=== PATIENT | male | born 1960 | race Caucasian/White ===

== ENCOUNTER → 2018-10-18 11:06 | Outpatient (CLI) | payer OTHER, SELFPAY | PROVIDERS: Visit Provider Physician Assistant | DX: N30.01 Acute cystitis with hematuria (principal) | CPT/HCPCS: 87077; 87086; 87186 ==

== ENCOUNTER → 2020-07-02 07:49 | Outpatient (CLI) | payer OTHER, SELFPAY ==
[2020-07-02 09:22] LABS: HEMOLYSIS < 15 (0-50); Potassium 4.5 mmol/L (3.4-5.1)
[2020-07-02 09:23] LABS: Alanine Aminotransferase 27 IU/L (<50); Albumin 4.4 g/dL (3.5-5.0); Albumin Globulin Ratio 1.5 (1.0-2.8); Alkaline Phosphatase 55 U/L (38-126); Aspartate Aminotransferase 35 IU/L (17-59); BUN Creatinine Ratio 19.8 (6-22); Bilirubin Total 0.7 mg/dL (0.2-1.3); Blood Urea Nitrogen 20 mg/dL (9-20); Calcium 9.5 mg/dL (8.4-10.2); Carbon Dioxide 26 mmol/L (22-32); Chloride 104 mmol/L (98-107); Cholesterol 205 mg/dL (140-199); Estimated Glomerular Filt Rate > 60.0 mL/min (>60); Globulin 2.9 g/dL (1.7-4.1); Glucose 114 mg/dL (80-110); HDL Cholesterol 57 mg/dL (40-60); LDL Cholesterol Calculated 121 mg/dL (<100); Sodium 138 mmol/L (137-145); Total Protein 7.3 g/dL (6.3-8.2); Triglycerides 134 mg/dL (35-150)
[2020-07-07 01:37] LABS: Percent Free Testosterone 2.89 % (1.50-4.20); Testosterone Free 26.65 ng/dL (5.00-21.00)
== END ==
PROVIDERS: PCP Internal Medicine; Referring Provider Internal Medicine; Visit Provider Internal Medicine
DX: Z13.1 Encounter for screening for diabetes mellitus (principal); Z13.220 Encounter for screening for lipoid disorders; Z13.6 Encounter for screening for cardiovascular disorders; E29.1 Testicular hypofunction
CPT/HCPCS: 36415; 80053; 80061; 84402; 84403

== ENCOUNTER → 2020-08-09 15:09 | Outpatient (CLI) | payer OTHER, SELFPAY ==
[2020-08-09 16:53] LABS: Prostate Specific Antigen 1.03 ng/mL (0.10-4.00)
== END ==
PROVIDERS: PCP Internal Medicine; Referring Provider Specialist; Visit Provider Specialist
DX: N13.8 Other obstructive and reflux uropathy (principal)
CPT/HCPCS: 36415; 84153

== ENCOUNTER → 2020-08-19 09:36 | Outpatient (CLI) | payer OTHER, SELFPAY | PROVIDERS: PCP Internal Medicine; Visit Provider Physician Assistant | DX: J02.9 Acute pharyngitis, unspecified (principal) | CPT/HCPCS: 87070 ==

== ENCOUNTER → 2020-08-25 13:35 | Outpatient (CLI) | payer OTHER, SELFPAY ==
[2020-08-25 14:00] LABS: COVID19 -Nasal RAPID Negative (Negative)
== END ==
PROVIDERS: PCP Internal Medicine; Referring Provider Physician Assistant; Visit Provider Physician Assistant
DX: Z20.822 Contact with and (suspected) exposure to COVID-19 (principal)
CPT/HCPCS: 87635

== ENCOUNTER → 2020-09-26 11:36 | Outpatient (CLI) | payer OTHER, SELFPAY | PROVIDERS: PCP Internal Medicine; Referring Provider Internal Medicine; Visit Provider Internal Medicine | DX: M85.851 Other specified disorders of bone density and structure, right thigh; Z82.62 Family history of osteoporosis | CPT/HCPCS: 77080 ==

== ENCOUNTER → 2021-01-03 08:22 | Outpatient (CLI) | payer OTHER, SELFPAY | PROVIDERS: PCP Internal Medicine; Visit Provider Physician Assistant | DX: R30.0 Dysuria (principal) | CPT/HCPCS: 87086 ==

== ENCOUNTER → 2021-01-08 12:45 | Outpatient (CLI) | payer OTHER, SELFPAY ==
--- NOTE | 2021-01-08 12:46 | DI.CT.S_ITS ---
PROCEDURE: CT KIDNEY URETER BLADDER (KUB) INDICATIONS: Suspected Kidney Stone TECHNIQUE: Axial sections were acquired from the lung bases to the pubic symphysis. Coronal and sagittal reformats were performed. For radiation dose reduction, the following was used: automated exposure control, adjustment of mA and/or kV according to patient size. COMPARISON: None. FINDINGS: ABDOMEN: Lung bases: Scattered subsegmental atelectasis and/or scarring. No focal consolidation. Few scattered sub 5 mm pulmonary nodules incidentally noted. Please see the montage image for detailed locations and image/series numbers. Heart: No pericardial effusion. Normal in size. Mild coronary artery calcifications. Liver: Normal. Gallbladder: Status post cholecystectomy. Bile ducts: Normal. Pancreas: Normal. Spleen: Normal. Adrenals: Normal. Kidneys and Ureters: 4 mm calculus seen at the right ureterovesical junction image 88/2. There is minimal if any ureterectasis. No hydronephrosis. No other renal calculi seen. Stomach and duodenum: Large hiatal hernia. Bowel: Large amount of stool is present. There is colonic diverticulosis. Appendix is not clearly identified however no suspicious pericecal inflammatory changes are seen. Other: No free fluid or air. Abdominal nodes: Normal. Aorta and IVC: Normal in size. Ventral wall: Small periumbilical fat containing hernia PELVIS: Bladder and reproductive: No bladder calculi seen. Enlarged prostate Inguinal region: Fat containing bilateral inguinal hernias. Pelvic nodes: Normal. Bones: Mild T8 compression fracture with anterior height loss. This finding technically age indeterminate. Diffuse spondylitic changes and facet arthropathy IMPRESSION: 4 mm right ureterovesical junction calculus. No associated evidence of urinary obstruction. No hydronephrosis. Large hiatal hernia. Incidentally noted bilateral sub 5 mm pulmonary nodules as detailed above. These findings indeterminate in the absence of relevant comparison studies. Recommend follow-up with CT chest in 12 months to exclude early metastatic or malignant possibilities. Additional chronic and incidental findings as above. Dictated by: Kvng Tyson M.D. on 01/08/2021 at 14:19 Approved by: Kvng Tyson M.D. on 01/08/2021 at 14:27
== END ==
PROVIDERS: PCP Internal Medicine; Referring Provider Internal Medicine; Visit Provider Internal Medicine
DX: R31.9 Hematuria, unspecified (principal); R39.15 Urgency of urination; M54.9 Dorsalgia, unspecified; R91.8 Other nonspecific abnormal finding of lung field; K44.9 Diaphragmatic hernia without obstruction or gangrene; N20.1 Calculus of ureter; N40.0 Benign prostatic hyperplasia without lower urinary tract symptoms; K57.90 Diverticulosis of intestine, part unspecified, without perforation or abscess without bleeding; K42.9 Umbilical hernia without obstruction or gangrene; K40.20 Bilateral inguinal hernia, without obstruction or gangrene, not specified as recurrent
CPT/HCPCS: 74176

== ENCOUNTER → 2021-02-04 13:00 | Outpatient (CLI) | payer OTHER, SELFPAY ==
--- NOTE | 2021-02-04 13:01 | DI.RAD.S_ITS ---
PROCEDURE: XR KUB INDICATIONS: History of right distal ureteral calculus TECHNIQUE: One view of the abdomen acquired. 3 mm [facility], CT, CT KIDNEY URETER BLADDER (KUB), 01/08/2021, 12:54. ficationCOMPARISON: FINDINGS: Surgical changes and devices: Surgical clips within the right upper quadrant. Bowel: Bowel gas pattern is normal. The right ureteral calculus seen by CT KUB is seen by plain film measuring roughly 4 mm. Visualized solid organ contours appear normal in size. Bones: No suspicious bony lesions. IMPRESSION: Distal right ureteral calculus. Dictated by: Dieter Moore M.D. on 02/04/2021 at 15:10 Approved by: Dieter Moore M.D. on 02/04/2021 at 15:11
== END ==
PROVIDERS: PCP Internal Medicine; Referring Provider Specialist; Visit Provider Specialist
DX: N20.1 Calculus of ureter (principal)
CPT/HCPCS: 74018

== ENCOUNTER → 2021-02-19 11:42 | Outpatient (CLI) | payer OTHER, SELFPAY ==
[2021-02-19 12:22] LABS: COVID19 -Nasal RAPID Negative (Negative)
== END ==
PROVIDERS: PCP Internal Medicine; Visit Provider Specialist
DX: Z20.822 Contact with and (suspected) exposure to COVID-19 (principal)
CPT/HCPCS: 87635; C9803

== ENCOUNTER 2021-02-22 07:41 | Day surgery (SDC) | payer OTHER, SELFPAY ==
[2021-02-19 14:07] VITALS: BMI 29.8
[2021-02-22] VITALS (9 sets, daily range): BP systolic 106–139; BP diastolic 72–90; PULSE 62–80; RESP 12–18; TEMP 36.1–36.6; O2SAT 93–96; BMI 29.8
[2021-02-22] MEDS: LACTATED RINGERS 1,000 ML 42 ML IV (08:14)
--- NOTE | 2021-02-22 08:54 | PM.PREOP ---
Pre-operative Note Interval Note History & Physical reviewed/Exam performed by Physician: Yes Changes to H&P: No
[2021-02-22] MEDS: CEFAZOLIN 2 GM/20 ML SYRINGE IV (09:35)
--- NOTE | 2021-02-22 09:46 | SUR.OPER ---
Lithotomy on padded OR bed, head on pillow, arms secured on padded arm boards at <90 degrees abduction. Legs secured in padded yellow fins stirrups.
--- NOTE | 2021-02-22 11:00 | PM.OP.1 ---
Operative Date/Time/Diagnoses Date of procedure: 02/22/21 Time of procedure: 11:00 Pre-op diagnosis: 4 mm right distal ureteral calculus Post-op diagnosis: other (Interval passage of same) Procedure & Clinicians Procedure: 1. Cystoscopy and right ureteroscopy Same procedure as scheduled: Yes Indications: 1. History of 4 mm right distal ureteral calculus Surgeon: Inder Moreno Click Yes if Unassisted: Yes Anesthesia Type: General Operative Notes Findings: 1. Urethra-normal caliber without annular stricture or lesion. 2. External sphincter coapted with normal overlying urothelium. 3. Prostate-4 + cm length with moderate trilobar hyperplasia. 4. Bladder-1 to 2+ trabeculation. Elevated bladder neck due to a median lobe. Normal ureteral orifices bilaterally. No evidence of stone, tumor, foreign body. 5. Right ureter-no evidence of recent trauma (with exception of balloon dilation for procedure), stone, blood or blood products within the right ureter from the ureterovesical junction to ureteropelvic junction under direct ureteroscopy. Closure Type: not applicable Estimated Blood Loss (mL): 0 Blood products transfused: none Procedure in detail: Patient was positioned supine was administered general anesthesia. He was then repositioned semi lithotomy and lower abdomen, genitalia, and groin were then prepped and draped in sterile fashion. The 22 Iranian panendoscope was then passed lower urinary tract with findings as described above. Next, a 0.35 hybrid guidewire was advanced through the scope into the right collecting system under direct and fluoroscopic guidance. Over this a 15 Iranian by 6 cm balloon dilating catheter was positioned across the right ureterovesical junction. The balloon was inflated 18 atmospheres and held in position for 5 minutes. The balloon was then deflated and backloaded off the wire. The panendoscope was backloaded off the wire. Next, the semi rigid ureteral scope was advanced lower urinary track and advanced in the right ureteral orifice and advanced proximally with the findings as described above. Two careful inspections were undertaken as described above. Semi rigid ureteral scope was then removed. Next, the panendoscope was reintroduced lower urinary tract and careful inspection was undertaken the bladder base. The bladder was filled on 2 occasions and drained without finding a stone. Bladder is then drained a final time in the panendoscope was removed. Patient was then repositioned in supine, was awakened, and transferred to gurney for transport to recovery in stable condition. Complications: none Post-operative Condition: stable Disposition: PACU Plan for aftercare: Discharge home.
== END 2021-02-22 11:35 | disposition home or self-care (01) ==
PROVIDERS: PCP Internal Medicine; Referring Provider Specialist; Visit Provider Specialist
PROC: 0TF68ZZ Fragmentation in Right Ureter, Via Natural or Artificial Opening Endoscopic (ICD-10-PCS; CPT 52353; principal; 2021-02-22 09:15)
DX: N20.1 Calculus of ureter (principal); N40.1 Benign prostatic hyperplasia with lower urinary tract symptoms; F41.9 Anxiety disorder, unspecified
CPT/HCPCS: 52345; 76000; J0690; J2405; J2704; J3010

== ENCOUNTER → 2021-03-12 13:27 | Outpatient (CLI) | payer OTHER, SELFPAY ==
[2021-03-12 13:51] LABS: COVID19 -Nasal RAPID Negative (Negative)
== END ==
PROVIDERS: PCP Internal Medicine; Referring Provider Student in an Organized Health Care Education/Training Program; Visit Provider Student in an Organized Health Care Education/Training Program
DX: Z20.822 Contact with and (suspected) exposure to COVID-19 (principal)
CPT/HCPCS: 87635

== ENCOUNTER → 2021-03-28 11:42 | Outpatient (CLI) | payer OTHER, SELFPAY ==
[2021-03-28 12:57] LABS: Add Manual Diff / Slide Review NO; Basophils Absolute Auto 100 /uL (0-100); Basophils Percent Auto 1.1 % (0-2); Eosinophils Absolute Auto 0 /uL (0-450); Eosinophils Percent Auto 0.6 % (2-4); Hematocrit 48.9 % (41-53); Hemoglobin 16.5 g/dL (13.5-17.5); Lymphocytes Absolute Auto 1000 /uL (1100-4500); Lymphocytes Percent Auto 18.9 % (25-40); Mean Corpuscular HGB Conc 33.8 % (30-36); Mean Corpuscular Hemoglobin 30.8 PG (26-34); Mean Corpuscular Volume 91.3 fL (80-100); Monocytes Absolute Auto 500 /uL (0-900); Monocytes Percent Auto 8.8 % (3-14); Neutrophils Absolute Auto 3900 /uL (1500-7000); Neutrophils Percent Auto 70.6 % (50-75); Platelet Count 374 X10^3/uL (150-400); Red Blood Cell Count 5.36 X10^6/uL (4.5-5.9); Red Cell Distribution Width 13.6 % (11.6-14.8); White Blood Cell Count 5.5 X10^3/uL (4.5-11.0)
[2021-03-28 13:31] LABS: Erythrocyte Sedimentation Rate 3 MM/HR (0-15)
[2021-03-28 13:36] LABS: Alanine Aminotransferase 33 IU/L (<50); Albumin 4.5 g/dL (3.5-5.0); Albumin Globulin Ratio 1.4 (1.0-2.8); Alkaline Phosphatase 47 U/L (38-126); Amylase 70 U/L (30-110); Aspartate Aminotransferase 28 IU/L (17-59); BUN Creatinine Ratio 15.2 (6-22); Bilirubin Total 0.8 mg/dL (0.2-1.3); Blood Urea Nitrogen 15 mg/dL (9-20); C-Reactive Protein Quant < 0.5 mg/dL (<1.0); Calcium 9.9 mg/dL (8.4-10.2); Carbon Dioxide 22 mmol/L (22-32); Chloride 107 mmol/L (98-107); Estimated Glomerular Filt Rate > 60.0 mL/min (>60); Globulin 3.2 g/dL (1.7-4.1); Glucose 104 mg/dL (80-110); HEMOLYSIS 31 (0-50); Lipase 210 U/L (23-300); Potassium 4.7 mmol/L (3.4-5.1); Sodium 139 mmol/L (137-145); Total Protein 7.7 g/dL (6.3-8.2)
== END ==
PROVIDERS: PCP Internal Medicine; Referring Provider Internal Medicine; Visit Provider Internal Medicine
DX: R10.11 Right upper quadrant pain (principal)
CPT/HCPCS: 36415; 80053; 82150; 83690; 85025; 85651; 86140

== ENCOUNTER → 2021-04-25 07:05 | Outpatient (CLI) | payer OTHER, SELFPAY ==
--- NOTE | 2021-04-25 07:06 | DI.US.S_ITS ---
PROCEDURE: US ABDOMEN LIMITED INDICATIONS: RUQ PAIN TECHNIQUE: Real-time focused scanning was performed of the abdomen, with image documentation. Color and pulse Doppler interrogation was also performed on the area of interest. COMPARISON: None. FINDINGS: Normal size and appearance of the liver. No liver mass. No intrahepatic or extrahepatic biliary ductal dilatation. Cholecystectomy. Pancreas is obscured by bowel gas. Normal size and appearance of the right kidney. IMPRESSION: Cholecystectomy. Otherwise normal right upper quadrant abdominal ultrasound. Dictated by: Toi Guerra M.D. on 04/25/2021 at 8:40 Approved by: Toi Guerra M.D. on 04/25/2021 at 8:41
== END ==
PROVIDERS: PCP Internal Medicine; Referring Provider Internal Medicine; Visit Provider Internal Medicine
DX: R10.11 Right upper quadrant pain (principal); Z90.49 Acquired absence of other specified parts of digestive tract
CPT/HCPCS: 76705

== ENCOUNTER → 2021-08-07 15:06 | Outpatient (CLI) | payer OTHER, SELFPAY ==
[2021-08-09 04:58] LABS: Prostate Specific Antigen 2.95 ng/mL (0.10-4.00)
== END ==
PROVIDERS: PCP Internal Medicine; Referring Provider Specialist; Visit Provider Specialist
DX: R97.20 Elevated prostate specific antigen [PSA] (principal)
CPT/HCPCS: 36415; 84153

== ENCOUNTER → 2022-08-27 12:49 | Outpatient (CLI) | payer OTHER, SELFPAY ==
[2022-08-29 23:08] LABS: PSA Free % 43.1 % (.); PSA, Total 1.3 ng/mL (0.0-4.0)
== END ==
PROVIDERS: PCP Internal Medicine; Referring Provider Specialist; Visit Provider Specialist
DX: R97.20 Elevated prostate specific antigen [PSA] (principal)
CPT/HCPCS: 36415; 84153; 84154

== ENCOUNTER 2023-04-03 14:33 | Emergency (ER) | payer OTHER, MEDICARE, SELFPAY ==
[2023-04-03 14:44] VITALS: BP 155/100; PULSE 93; RESP 16; TEMP 36.6; O2SAT 98; BMI 27.4
--- NOTE | 2023-04-03 14:49 | DI.RAD.S_ITS ---
PROCEDURE: XR CHEST 1V INDICATIONS: chest pain TECHNIQUE: One view of the chest was acquired. COMPARISON: None. FINDINGS: Surgical changes and devices: None. Lungs and pleura: Lungs are clear. No pleural effusions or pneumothorax. Mediastinum: Mediastinal contours appear normal except for what appears to be a moderate-sized hiatal hernia behind the midline of the heart. Heart size is normal. Bones and chest wall: No suspicious bony lesions. Overlying soft tissues appear unremarkable. IMPRESSION: Mild stranding at the lateral left lower lobe just above the diaphragm, potentially simply scarring or atelectasis but possibly mild or early pneumonia. Dictated by: Melvin Jaime M.D. on 04/03/2023 at 15:34 Approved by: Melvin Jaime M.D. on 04/03/2023 at 15:35
[2023-04-03] MEDS: ASPIRIN 81 MG CHEW TAB 324 MG PO (15:04)
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
[2023-04-03 15:07] LABS: Add Manual Diff / Slide Review NO; Basophils Absolute Auto 0 /uL (0-100); Basophils Percent Auto 0.7 % (0-2); Eosinophils Absolute Auto 0 /uL (0-450); Eosinophils Percent Auto 0.6 % (2-4); Hematocrit 34.4 % (41-53); Hemoglobin 10.9 g/dL (13.5-17.5); Lymphocytes Absolute Auto 800 /uL (1100-4500); Lymphocytes Percent Auto 12.6 % (25-40); Mean Corpuscular HGB Conc 31.7 % (30-36); Mean Corpuscular Hemoglobin 22.6 PG (26-34); Mean Corpuscular Volume 71.3 fL (80-100); Monocytes Absolute Auto 600 /uL (0-900); Monocytes Percent Auto 9.8 % (3-14); Neutrophils Absolute Auto 4900 /uL (1500-7000); Neutrophils Percent Auto 76.3 % (50-75); Platelet Count 289 X10^3/uL (150-400); Red Blood Cell Count 4.82 X10^6/uL (4.5-5.9); Red Cell Distribution Width 16.8 % (11.6-14.8); White Blood Cell Count 6.4 X10^3/uL (4.5-11.0)
[2023-04-03] MEDS: HEPARIN DRIP 25,000 UNIT/500 ML IV.SOLN 27.216 UNIT IV (15:10)
[2023-04-03 15:11] VITALS: BP 165/100; PULSE 96; RESP 20; O2SAT 98
[2023-04-03] MEDS: HEPARIN 5,000 UNIT/ML VIAL 9050 UNIT IV (15:16)
[2023-04-03 15:17] VITALS: BP 155/97; PULSE 94; RESP 20; O2SAT 98
[2023-04-03] MEDS: NITROGLYCERIN OINT 1 INCH/GM OINT...G. TOP (15:21)
[2023-04-03 15:25] LABS: INR 1.1 (0.9-1.3); Prothrombin Time 12.1 SECONDS (9.4-12.5)
--- NOTE | 2023-04-03 15:26 | PC.NURSE ---
Pt arrived POV, states at 11am [place] when he has some chest discomfort that radiated to his L arm. Came to ED. STEMI alert showing inferior/posterior ST elevation. BP 155/systolic. AAOx3, ambulatory. Dr Nguyễn at bedside. 324mg ASA given and heparin bolus and infusion started per APR orders. 911 in route. Report given to BRANDEN Richardson gritting machine operator and BRANDEN Granados gritting machine operator. Pain 2/10 at time of transfer. Report given to [facility] ED by Coby Bui RN. Pt transferred at 1520 with heparin infusion running.
[2023-04-03 15:28] LABS: PTT Partial Thromboplastin Tim 35 SECONDS (25.1-36.5)
[2023-04-03 15:30] LABS: Alanine Aminotransferase 20 IU/L (<50); Albumin 4.5 g/dL (3.5-5.0); Albumin Globulin Ratio 1.2 (1.0-2.8); Alkaline Phosphatase 65 U/L (38-126); Aspartate Aminotransferase 30 IU/L (17-59); BUN Creatinine Ratio 17.5 (6-22); Bilirubin Total 0.5 mg/dL (0.2-1.3); Blood Urea Nitrogen 17 mg/dL (9-20); Calcium 9.1 mg/dL (8.4-10.2); Carbon Dioxide 20 mmol/L (22-32); Chloride 107 mmol/L (98-107); Creatine Kinase 177 U/L (55-170); Estimated Glomerular Filt Rate > 60 mL/min (>60); Globulin 3.7 g/dL (1.7-4.1); Glucose 137 mg/dL (80-110); HEMOLYSIS < 15 (0-50); Lipase 132 U/L (23-300); Potassium 3.9 mmol/L (3.4-5.1); Sodium 139 mmol/L (137-145); Total Protein 8.2 g/dL (6.3-8.2)
[2023-04-03 16:12] LABS: Troponin I 0.734 ng/mL (0.01-0.034)
--- NOTE | 2023-04-06 14:55 | ED.CHESTPAIN ---
HPI - Chest Pain General Chief Complaint: Chest Pain Stated Complaint: chest pain, tingling in fingers L arm Time Seen by Provider: 04/03/23 15:02 Source: patient Mode of arrival: Ambulatory Limitations: no limitations Related Data Home Medications Medication Instructions Recorded Confirmed cholecalciferol (vitamin D3) 1,250 1,250 mcg PO QMONTH 08/08/19 12/31/22 mcg (50,000 unit) tablet Previous Rx's Medication Instructions Recorded tamsulosin 0.4 mg capsule 0.4 mg PO BEDTIME #90 caps 12/31/22 Allergies Allergy/AdvReac Type Severity Reaction Status Date / Time PENICILLIN Allergy Severe Hospitilized Uncoded 04/03/23 14:46 as a child. Review of Systems Review of Systems ROS Unobtainable: All systems reviewed & are unremarkable except as noted in HPI and below Patient History Medical History Coronary artery disease (~04/03/23) Balanitis Elevated PSA Right ureteral calculus Osteopenia Balanitis Hearing loss Double vision (~2018) Hemorrhoid (~2010) ASD (atrial septal defect) (~1958) Anxiety, generalized (~2014) Hypogonadism male (~2014) Lower urinary tract symptoms (LUTS) Inguinal hernia Enlarged prostate Prostatitis Surgical History Anesthesia Hernia of anterior abdominal wall (~1981) S/P shoulder surgery (~2003) S/P cholecystectomy (~2004) Family History Father Stroke Mother Stroke Brother Oral cancer Social History household members: spouse Smoking Status: Never smoker alcohol intake: current Smoking Status: Never smoker alcohol intake frequency: a few times a week Substance Use Type: does not use Exam Initial Vital Signs Initial Vital Signs: Vital Signs Temperature 97.8 F 04/03/23 14:44 Pulse Rate 93 H 04/03/23 14:44 Respiratory Rate 16 04/03/23 14:44 Blood Pressure 155/100 H 04/03/23 14:44 Pulse Oximetry 98 04/03/23 14:44 Oxygen Delivery Method Room Air 04/03/23 14:44 Course Orders Ordered: Discontinued Medications Aspirin (Aspirin 81 Mg Chew Tab) 324 mg PO NOW ONE Stop: 04/03/23 14:50 Last Admin: 04/03/23 15:04 Dose: 324 mg Documented By: SARA Heparin Sodium (Porcine) (Heparin 5,000 Unit/Ml Vial) 9,050 unit 80 unit/kg (9050 unit) IV NOW ONE Stop: 04/03/23 15:09 Last Admin: 04/03/23 15:16 Dose: 9,050 unit Documented By: JAIDEN Heparin Sodium/Dextrose (Heparin Drip) 25,000 unit in 500 mls @ 27.216 mls/hr IV CONT MICHAEL; Protocol Last Titration: 04/03/23 15:32 Dose: 8.82 units/kg/hr, 20 mls/hr Documented By: JAIDEN Co-signed By: VIOLET Titration: 04/03/23 15:16 Dose: 8.82 units/kg/hr, 20 mls/hr Documented By: JAIDEN Co-signed By: VIOLET Admin: 04/03/23 15:10 Dose: 12 units/kg/hr, 27.216 mls/hr Documented By: JAIDEN Co-signed By: VIOLET Sodium Chloride (Normal Saline 0.9%) 1,000 mls @ 1,000 mls/hr IV BOLUS ONE Stop: 04/03/23 16:06 Last Admin: 04/03/23 15:32 Dose: Not Given Documented By: JAIDEN Nitroglycerin (Nitroglycerin Oint 1 Inch/Gm Oint...G.) 1 inch TOP NOW ONE Stop: 04/03/23 15:18 Last Admin: 04/03/23 15:21 Dose: 1 inch Documented By: SARA [facility] - Chest Pain Lab Data 04/03/23 14:55 04/03/23 14:55 Labs: Lab Results 04/03/23 Range/Units 14:55 WBC 6.4 (4.5-11.0) X10^3/uL RBC 4.82 (4.5-5.9) X10^6/uL Hgb 10.9 L (13.5-17.5) g/dL Hct 34.4 L (41-53) % MCV 71.3 L (80-100) fL MCH 22.6 L (26-34) PG MCHC 31.7 (30-36) % RDW 16.8 H (11.6-14.8) % Plt Count 289 (150-400) X10^3/uL Neut % (Auto) 76.3 H (50-75) % Lymph % (Auto) 12.6 L (25-40) % [place] % (Auto) 9.8 (3-14) % Eos % (Auto) 0.6 L (2-4) % Baso % (Auto) 0.7 (0-2) % Neut # (Auto) 4900 (3463-6698) /uL Lymph # (Auto) 800 L (3263-6084) /uL [place] # (Auto) 600 (0-900) /uL Eos # (Auto) 0 (0-450) /uL Baso # (Auto) 0 (0-100) /uL PT 12.1 (9.4-12.5) SECONDS INR 1.1 (0.9-1.3) APTT 35 (25.1-36.5) SECONDS Sodium 139 (137-145) mmol/L Potassium 3.9 (3.4-5.1) mmol/L Chloride 107 (98-107) mmol/L Carbon Dioxide 20 L (22-32) mmol/L BUN 17 (9-20) mg/dL Creatinine 0.97 (0.66-1.25) mg/dL Estimated GFR > 60 (>60) mL/min BUN/Creatinine Ratio 17.5 (6-22) Glucose 137 H (80-110) mg/dL Calcium 9.1 (8.4-10.2) mg/dL Magnesium 2.0 (1.6-2.3) mg/dL Total Bilirubin 0.5 (0.2-1.3) mg/dL AST 30 (17-59) IU/L ALT 20 (<50) IU/L Alkaline Phosphatase 65 (38-126) U/L Total Creatine Kinase 177 H (55-170) U/L Troponin I 0.734 H* (0.01-0.034) ng/mL Total Protein 8.2 (6.3-8.2) g/dL Albumin 4.5 (3.5-5.0) g/dL Globulin 3.7 (1.7-4.1) g/dL Albumin/Globulin Ratio 1.2 (1.0-2.8) Lipase 132 (23-300) U/L Discharge Plan [facility] Imp[facility]: ST elevation myocardial infarction (STEMI) Qualifiers: Involved coronary artery: unspecified coronary artery Qualified Code(s): I21.3 - ST elevation (STEMI) myocardial infarction of unspecified site Prescriptions: No Action cholecalciferol (vitamin D3) 1,250 mcg (50,000 unit) tablet 1,250 mcg PO QMONTH tamsulosin 0.4 mg capsule 0.4 mg PO BEDTIME Qty: 90 3RF Referrals: David Solorio MD [Primary Care Provider] -
== END 2023-04-03 15:33 | disposition short-term general hospital (02) ==
PROVIDERS: Emergency Provider Emergency Medicine; PCP Internal Medicine
DX: I21.3 ST elevation (STEMI) myocardial infarction of unspecified site (principal)
CPT/HCPCS: 36415; 71045; 80053; 82550; 83690; 83735; 84484; 85025; 85610; 85730; 93005; 93010; 96365; 96375; 99284; J1644

== ENCOUNTER 2023-04-06 14:34 | Emergency (ER) | payer OTHER, MEDICARE, SELFPAY ==
[2023-04-06] VITALS (10 sets, daily range): BP systolic 105–133; BP diastolic 65–89; PULSE 69–86; RESP 9–27; TEMP 37; O2SAT 95–98; BMI 27.4
--- NOTE | 2023-04-06 14:37 | DI.RAD.S_ITS ---
PROCEDURE: XR CHEST 1V INDICATIONS: chest pain TECHNIQUE: One view of the chest was acquired. COMPARISON: [facility], CR, XR CHEST 1 VIEW, 04/03/2023, 23:12. [facility], CR, XR CHEST 1V, 04/03/2023, 14:54. FINDINGS: Surgical changes and devices: None. Lungs and pleura: Left basilar opacity. No pleural effusions or pneumothorax. Mediastinum: Mediastinal contours appear normal. Heart size is normal. Bones and chest wall: No suspicious bony lesions. Overlying soft tissues appear unremarkable. IMPRESSION: Left basilar opacity is stable, atelectasis versus infection. Dictated by: Robby López M.D. on 04/06/2023 at 15:40 Approved by: Robby López M.D. on 04/06/2023 at 15:42
[2023-04-06] MEDS: ASPIRIN 81 MG CHEW TAB 324 MG PO (14:54)
[2023-04-06 15:05] LABS: Add Manual Diff / Slide Review NO; Basophils Absolute Auto 0 /uL (0-100); Basophils Percent Auto 0.4 % (0-2); Eosinophils Absolute Auto 100 /uL (0-450); Eosinophils Percent Auto 1.9 % (2-4); Hematocrit 30.8 % (41-53); Hemoglobin 9.8 g/dL (13.5-17.5); Lymphocytes Absolute Auto 1100 /uL (1100-4500); Mean Corpuscular HGB Conc 31.9 % (30-36); Mean Corpuscular Volume 72.1 fL (80-100); Monocytes Absolute Auto 300 /uL (0-900); Monocytes Percent Auto 4.9 % (3-14); Neutrophils Absolute Auto 5400 /uL (1500-7000); Neutrophils Percent Auto 76.8 % (50-75); Platelet Count 274 X10^3/uL (150-400); Red Blood Cell Count 4.27 X10^6/uL (4.5-5.9); Red Cell Distribution Width 16.9 % (11.6-14.8)
[2023-04-06 15:13] LABS: INR 1.1 (0.9-1.3); Prothrombin Time 12.3 SECONDS (9.4-12.5)
[2023-04-06 15:16] LABS: PTT Partial Thromboplastin Tim 35 SECONDS (25.1-36.5)
--- NOTE | 2023-04-06 15:19 | ED.NEUROSD ---
HPI - Neuro Symptoms/Deficit General Chief Complaint: Neuro Symptoms/Deficit Stated Complaint: had heart attack t-2, tingling on L arm/legs Time Seen by Provider: 04/06/23 14:50 Source: patient and family Mode of arrival: Ambulatory History of Present Illness HPI Narrative: 63-year-old male with recent ST elevated OH transferred on 04/03/2023 to [facility] had heart catheterization EF was 55% and discharged yesterday that time patient had chest pain with left arm tingling anus. He states no chest pain or pressure no shortness of breath but left arm and his left leg had some tingling in his in a sterile around his calf. Patient states he has not having any weakness denies headache, denies vision changes. Denies any chest pain or shortness of breath. Denies any new weakness or difficulty with ambulation. No speech changes. Patient states he did have a 2nd of an ocular migraine when she has had in the past and states that resolved. Patient states before his transfer several days ago was only on Flomax he is now on aspirin, Plavix, atorvastatin, iron and metoprolol XL 25 mg daily. Denies surgeries besides his cardiac stents. Allergic to penicillin. No tobacco, occasional alcohol, no recreational drugs. Dr. Solorio is his primary care physician. Following with [facility]. On Anticoagulants: Yes (plavix and Asa 81mg) Related Data Home Medications Medication Instructions Recorded Confirmed cholecalciferol (vitamin D3) 1,250 1,250 mcg PO QMONTH 08/08/19 12/31/22 mcg (50,000 unit) tablet Previous Rx's Medication Instructions Recorded tamsulosin 0.4 mg capsule 0.4 mg PO BEDTIME #90 caps 12/31/22 Allergies Allergy/AdvReac Type Severity Reaction Status Date / Time PENICILLIN Allergy Severe Hospitilized Uncoded 04/03/23 14:46 as a child. Review of Systems Review of Systems ROS Unobtainable: All systems reviewed & are unremarkable except as noted in HPI and below Hematologic/Lymphatic On Anticoagulants: Yes (plavix and Asa 81mg) Patient History Medical History Coronary artery disease (~04/03/23) Balanitis Elevated PSA Right ureteral calculus Osteopenia Balanitis Hearing loss Double vision (~2018) Hemorrhoid (~2010) ASD (atrial septal defect) (~195) Anxiety, generalized (~2014) Hypogonadism male (~2014) Lower urinary tract symptoms (LUTS) Inguinal hernia Enlarged prostate Prostatitis Surgical History Anesthesia Hernia of anterior abdominal wall (~1981) S/P shoulder surgery (~2003) S/P cholecystectomy (~2004) Family History Father Stroke Mother Stroke Brother Oral cancer Social History household members: spouse Smoking Status: Never smoker alcohol intake: current Smoking Status: Never smoker alcohol intake frequency: a few times a week Substance Use Type: does not use Exam Narrative Exam Narrative: GENERAL: Alert and oriented x three, male in mild distress HEENT: Head normocephalic, atraumatic, EOMI, pupils reactive, face symmetric, moist mucous membranes NECK: Supple, full range of motion CARDIOVASCULAR: Regular rate and rhythm without murmurs, rubs or gallops. No JVD. 2+ pulses upper and lower extremities. RESPIRATORY: Breath sounds equal bilaterally, no wheezes rales or rhonchi. ABDOMEN: Soft, nontender. Normoactive bowel sounds all 4 quadrants. No guarding or rebound, rigidity, no mass, patient has some ecchymosis in his right inguinal area but no swelling or hematoma palpated. No warmth or erythema. : No CVA tenderness EXTREMITIES: Normal range of motion, no clubbing or edema. 5/5 muscle strength in upper and lower extremities. Normal sensation throughout. Neurovascularly intact NEUROLOGICAL: Cranial nerves II through XII grossly intact. Moving all extremities SKIN: Warm, dry, no petechiae, no rashes or lesions. Initial Vital Signs Initial Vital Signs: Vital Signs Temperature 98.6 F 04/06/23 14:37 Pulse Rate 82 04/06/23 14:37 Respiratory Rate 23 04/06/23 14:37 Blood Pressure 120/83 04/06/23 14:37 Pulse Oximetry 97 04/06/23 14:37 Oxygen Delivery Method Room Air 04/06/23 14:37 Course Orders Ordered: Discontinued Medications Aspirin (Aspirin 81 Mg Chew Tab) 324 mg PO NOW ONE Stop: 04/06/23 14:37 Last Admin: 04/06/23 14:54 Dose: 243 mg Documented By: SB Vital Signs Vital signs: Vital Signs - 8 hr 04/06/23 14:37 04/06/23 14:50 04/06/23 15:00 Temperature 98.6 F Pulse Rate 82 86 83 Respiratory Rate 23 26 H 25 H Blood Pressure 120/83 Pulse Oximetry 97 98 97 Oxygen Delivery Method Room Air Room Air 04/06/23 15:00 04/06/23 15:30 04/06/23 15:30 Temperature Pulse Rate 81 Respiratory Rate 27 H Blood Pressure 126/79 133/89 Pulse Oximetry 96 Oxygen Delivery Method 04/06/23 16:00 04/06/23 16:00 04/06/23 16:30 Temperature Pulse Rate 81 75 Respiratory Rate 19 9 L Blood Pressure 117/75 Pulse Oximetry 97 96 Oxygen Delivery Method 04/06/23 16:30 04/06/23 17:00 04/06/23 17:00 Temperature Pulse Rate 77 Respiratory Rate 14 Blood Pressure 107/69 106/75 Pulse Oximetry 96 Oxygen Delivery Method 04/06/23 17:30 04/06/23 17:30 04/06/23 18:00 Temperature Pulse Rate 72 74 Respiratory Rate 17 18 Blood Pressure 116/65 Pulse Oximetry 95 96 Oxygen Delivery Method MDM - Neuro Symptoms/Deficit Lab Data 04/06/23 14:52 04/06/23 14:52 Labs: Lab Results 04/06/23 04/06/23 Range/Units 14:52 17:49 WBC 7.0 (4.5-11.0) X10^3/uL RBC 4.27 L (4.5-5.9) X10^6/uL Hgb 9.8 L (13.5-17.5) g/dL Hct 30.8 L (41-53) % MCV 72.1 L (80-100) fL MCH 23.0 L (26-34) PG MCHC 31.9 (30-36) % RDW 16.9 H (11.6-14.8) % Plt Count 274 (150-400) X10^3/uL Neut % (Auto) 76.8 H (50-75) % Lymph % (Auto) 16.0 L (25-40) % [place] % (Auto) 4.9 (3-14) % Eos % (Auto) 1.9 L (2-4) % Baso % (Auto) 0.4 (0-2) % Neut # (Auto) 5400 (6512-8979) /uL Lymph # (Auto) 1100 (0683-4581) /uL [place] # (Auto) 300 (0-900) /uL Eos # (Auto) 100 (0-450) /uL Baso # (Auto) 0 (0-100) /uL PT 12.3 (9.4-12.5) SECONDS INR 1.1 (0.9-1.3) APTT 35 (25.1-36.5) SECONDS Sodium 137 (137-145) mmol/L Potassium 4.2 (3.4-5.1) mmol/L Chloride 107 (98-107) mmol/L Carbon Dioxide 20 L (22-32) mmol/L BUN 18 (9-20) mg/dL Creatinine 0.96 (0.66-1.25) mg/dL Estimated GFR > 60 (>60) mL/min BUN/Creatinine Ratio 18.8 (6-22) Glucose 164 H (80-110) mg/dL Calcium 9.3 (8.4-10.2) mg/dL Magnesium 1.9 (1.6-2.3) mg/dL Total Bilirubin 0.4 (0.2-1.3) mg/dL AST 72 H (17-59) IU/L ALT 34 (<50) IU/L Alkaline Phosphatase 57 (38-126) U/L Total Creatine Kinase 250 H (55-170) U/L Troponin I 10.900 H* 10.900 H* (0.01-0.034) ng/mL Total Protein 7.5 (6.3-8.2) g/dL Albumin 4.2 (3.5-5.0) g/dL Globulin 3.3 (1.7-4.1) g/dL Albumin/Globulin Ratio 1.3 (1.0-2.8) Lipase 132 (23-300) U/L Imaging Data Chest x-ray: Radiologist's Impression: Close Chest X-Ray (Signed) Robby López - 04/06/23 Chest X-Ray (Signed) Melvin Jaime - 04/03/23 Abdomen Ultrasound (Signed) Toi Guerra - 04/25/21 Telemetry Strips 02/22/21 KUB X-Ray (Signed) Dieter Moore - 02/04/21 Abdomen/Pelvis CT (Signed) Kvng Tyson - 01/08/21 Bone Densitometry 09/26/20 Launch?Image [address] [address] XRay Report Signed Patient: Ilir Han MR#: [id number] : 1960 Acct:[id number] Age/Sex: 63 / M Date of Service: 04/06/23 Loc: ED Accession Number: [id number] Procedure: XR chest 1V Ordering Provider: Valentina Oneil D.O. PROCEDURE: XR CHEST 1V INDICATIONS: chest pain TECHNIQUE: One view of the chest was acquired. COMPARISON: [facility], CR, XR CHEST 1 VIEW, 04/03/2023, 23:12. [facility], CR, XR CHEST 1V, 04/03/2023, 14:54. FINDINGS: Surgical changes and devices: None. Lungs and pleura: Left basilar opacity. No pleural effusions or pneumothorax. Mediastinum: Mediastinal contours appear normal. Heart size is normal. Bones and chest wall: No suspicious bony lesions. Overlying soft tissues appear unremarkable. IMPRESSION: Left basilar opacity is stable, atelectasis versus infection. Dictated by: Robby López M.D. on 04/06/2023 at 15:40 Approved by: Robby López M.D. on 04/06/2023 at 15:42 ECG Data Attestation: I personally reviewed and interpreted this ECG as follows: Prior ECG tracings: available for review Interpretation: Rate 86 VA 164 QRS of 90 QTC 449 normal sinus rhythm with inverted T-waves in 2 3 and AVF with Q-waves present as well. No other ST elevation or depression appreciated. Patient has prior from 04/03/[address] elevation in 2 3 AVF with depression in V1 through V3 and and aVL. MDM Narrative Medical decision making narrative: 63-year-old male presents with complaint of tingling sensation in his arm and leg. Patient has no other symptoms states that he had some tingling with his heart attack but at that time also had chest pressure. He states he has had none of that. Patient's neurologic exam is overall normal. Labs hemoglobin 9.8 was 10.9 on 04/03 white count of 7, platelets are 274. Coags are negative, CMP shows a CO2 of 20 but otherwise appropriate electrolytes, renal function glucose of 164. AST is 72 otherwise negative LFTs. Troponin is 10.9 but was 24 with troponin I yesterday at [facility] after discussion with Cardiology and CK yesterday was in the 900 range in his 250 today. Chest x-ray shows left basilar opacity stable atelectasis versus infection. Patient does not appear to have any infectious symptoms suspect more atelectasis. EKG shows T-wave inversions but no elevation and pattern that appears expected post OH. Spoke with Dr. Salguero, cardiology at [facility]. He reviewed patient's labs troponin is continuing to trend down words. We will repeat at 2 hour if no increased patient is felt appropriate for discharge home. Repeat troponin at the same at 10.9 but has had significant improvement from yesterday to today. Patient felt appropriate for discharge home. Discharge Plan Departure Patient Disposition: Home Clinical Impression: Arm paresthesia, left Activity Restrictions/Additional Instructions: Follow-up for recheck. I hope you continue to feel improved. Your heart enzyme today is elevated but significantly improved from yesterday at [facility]. Continue with your current home medications. Please return if you have new chest pain or shortness of breath, severe headaches, sudden vision changes, new or worsening numbness tingling or weakness, difficulty with speech or facial droop or other new or concerning changes. Prescriptions: No Action cholecalciferol (vitamin D3) 1,250 mcg (50,000 unit) tablet 1,250 mcg PO QMONTH tamsulosin 0.4 mg capsule 0.4 mg PO BEDTIME Qty: 90 3RF Referrals: David Solorio MD [Primary Care Provider] - Stand Alone Forms: Patient Portal/API
[2023-04-06 15:25] LABS: Alanine Aminotransferase 34 IU/L (<50); Albumin 4.2 g/dL (3.5-5.0); Albumin Globulin Ratio 1.3 (1.0-2.8); Alkaline Phosphatase 57 U/L (38-126); Aspartate Aminotransferase 72 IU/L (17-59); BUN Creatinine Ratio 18.8 (6-22); Bilirubin Total 0.4 mg/dL (0.2-1.3); Blood Urea Nitrogen 18 mg/dL (9-20); Calcium 9.3 mg/dL (8.4-10.2); Carbon Dioxide 20 mmol/L (22-32); Chloride 107 mmol/L (98-107); Creatine Kinase 250 U/L (55-170); Estimated Glomerular Filt Rate > 60 mL/min (>60); Globulin 3.3 g/dL (1.7-4.1); Glucose 164 mg/dL (80-110); HEMOLYSIS < 15 (0-50); Lipase 132 U/L (23-300); Magnesium 1.9 mg/dL (1.6-2.3); Potassium 4.2 mmol/L (3.4-5.1); Sodium 137 mmol/L (137-145); Total Protein 7.5 g/dL (6.3-8.2)
--- NOTE | 2023-04-06 17:00 | PC.NURSE ---
PT denies chest pain, SOB, dizziness, nausea, or lightheaded. He complains of left sided tingling that goes into his left shoulder/arm, and down through his left leg. Pt was seen in our ER Thursday for a STEMI and sent to [facility] transport and had a stent placed. Pt ambulatory and denies any pain.
== END 2023-04-06 19:05 | disposition home or self-care (01) ==
PROVIDERS: Emergency Provider Emergency Medicine; PCP Internal Medicine
DX: R20.2 Paresthesia of skin (principal); R07.9 Chest pain, unspecified; I25.2 Old myocardial infarction; Z79.01 Long term (current) use of anticoagulants
CPT/HCPCS: 36415; 71045; 80053; 82550; 83690; 83735; 84484; 85025; 85610; 85730; 93005; 99284

== ENCOUNTER 2023-04-25 18:41 | Emergency (ER) | payer OTHER, MEDICARE, SELFPAY ==
[2023-04-25] VITALS (8 sets, daily range): BP systolic 106–159; BP diastolic 69–89; PULSE 68–79; RESP 12–26; TEMP 37; O2SAT 97–99; BMI 33.5
--- NOTE | 2023-04-25 18:45 | DI.RAD.S_ITS ---
PROCEDURE: XR CHEST 1V INDICATIONS: chest pain TECHNIQUE: One view of the chest was acquired. COMPARISON: [facility], CR, XR CHEST 1V, 04/06/2023, 14:54. [facility], CR, XR CHEST 1V, 04/03/2023, 14:54. [facility], CR, XR CHEST 1 VIEW, 04/03/2023, 23:12. FINDINGS: Surgical changes and devices: None. Lungs and pleura: On this semiupright portable chest examination, no large pneumothorax or large pleural effusions are seen. Mild, streaky opacities are seen at the lung bases, left worse than right. Mediastinum: The cardiac contours are within normal limits. The aorta demonstrates calcification and tortuosity. Bones and chest wall: No suspicious bony lesions. Age-appropriate bony degenerative changes are seen. Overlying soft tissues appear unremarkable. IMPRESSION: Presumed atelectasis is seen at the lung bases. Differential diagnosis includes minimal/early infiltrate, yet this is considered to be less likely. Dictated by: Navin Ching M.D. on 04/25/2023 at 18:26 Approved by: Navin Ching M.D. on 04/25/2023 at 18:27
[2023-04-25 18:54] LABS: Add Manual Diff / Slide Review NO; Basophils Absolute Auto 100 /uL (0-100); Basophils Percent Auto 1.2 % (0-2); Eosinophils Absolute Auto 200 /uL (0-450); Eosinophils Percent Auto 2.8 % (2-4); Hematocrit 34.5 % (41-53); Hemoglobin 10.9 g/dL (13.5-17.5); Lymphocytes Absolute Auto 1300 /uL (1100-4500); Lymphocytes Percent Auto 24.2 % (25-40); Mean Corpuscular HGB Conc 31.6 % (30-36); Mean Corpuscular Hemoglobin 23.5 PG (26-34); Mean Corpuscular Volume 74.3 fL (80-100); Monocytes Absolute Auto 600 /uL (0-900); Neutrophils Absolute Auto 3400 /uL (1500-7000); Neutrophils Percent Auto 61.8 % (50-75); Platelet Count 341 X10^3/uL (150-400); Red Blood Cell Count 4.64 X10^6/uL (4.5-5.9); Red Cell Distribution Width 20.3 % (11.6-14.8); White Blood Cell Count 5.5 X10^3/uL (4.5-11.0)
--- NOTE | 2023-04-25 18:57 | ED.GENADULT ---
HPI - General Adult General Chief complaint: Chest Pain Stated complaint: Chest pain Time Seen by Provider: 04/25/23 18:43 Source: EMS Mode of arrival: EMS History of Present Illness HPI narrative: 63-year-old male with history of HI 1 month prior presents by EMS from home for left-sided shoulder pain that began earlier this evening. Pain is a dull ache in his triceps region, does not radiate. Since patient has had a recent HI he became concerned and decided called 911 out of precaution. EMS administered aspirin and nitroglycerin EN route. EKG sinus rhythm throughout transport. Related Data Home Medications Medication Instructions Recorded Confirmed cholecalciferol (vitamin D3) 1,250 1,250 mcg PO QMONTH 08/08/19 04/09/23 mcg (50,000 unit) tablet aspirin 81 mg chewable tablet 1 tab PO DAILY 04/09/23 04/09/23 atorvastatin 20 mg tablet 20 mg PO DAILY 04/09/23 04/09/23 clopidogrel 75 mg tablet 75 mg PO DAILY 04/09/23 04/09/23 ferrous sulfate 325 mg (65 mg 325 mg PO Q OTHER DAY 04/09/23 04/09/23 iron) tablet (FeroSul) metoprolol succinate 25 mg 25 mg PO DAILY 04/09/23 04/09/23 tablet,extended release 24 hr Previous Rx's Medication Instructions Recorded tamsulosin 0.4 mg capsule 0.4 mg PO BEDTIME #90 caps 12/31/22 Allergies Allergy/AdvReac Type Severity Reaction Status Date / Time PENICILLIN Allergy Severe Hospitilized Uncoded 04/24/23 10:03 as a child. Review of Systems Review of Systems Narrative: See HPI Patient History Medical History ST elevation myocardial infarction (STEMI) Iron deficiency anemia (~03/2023) Coronary artery disease (~04/03/23) Balanitis Elevated PSA Right ureteral calculus Osteopenia Balanitis Hearing loss Double vision (~2018) Hemorrhoid (~2010) ASD (atrial septal defect) (~1958) Anxiety, generalized (~2014) Hypogonadism male (~2014) Lower urinary tract symptoms (LUTS) Inguinal hernia Enlarged prostate Prostatitis Surgical History H/O heart artery stent Anesthesia Hernia of anterior abdominal wall (~1981) S/P shoulder surgery (~2003) S/P cholecystectomy (~2004) Family History Father Stroke Mother Stroke Brother Oral cancer Social History marital status: household members: spouse lives independently: Yes occupational status: previously employed Smoking Status: Never smoker alcohol intake: current substance use type: does not use Smoking Status: Never smoker alcohol intake frequency: a few times a week Substance Use Type: does not use Exam Initial Vital Signs Initial Vital Signs: Vital Signs Pulse Rate 76 04/25/23 18:45 Respiratory Rate 20 04/25/23 18:45 Blood Pressure 159/89 H 04/25/23 18:45 Pulse Oximetry 99 04/25/23 18:45 Oxygen Delivery Method Room Air 04/25/23 18:45 Const: Awake, alert, no acute distress, nontoxic appearing Cardiac: regular rate, regular rhythm RESP: unlabored, clear bilaterally, no wheezing GI: Atraumatic, soft, nontender, nondistended, no rebound, no guarding MSK: Atraumatic, full range of motion, pulses equal Skin: Warm, Dry, intact, no rashes Neuro: AO x3, CN II-XII grossly intact, moves all extremities Course Orders Ordered: Discontinued Medications Aspirin (Aspirin 81 Mg Chew Tab) 324 mg PO NOW ONE Stop: 04/25/23 18:46 Last Admin: 04/25/23 18:51 Dose: Not Given Documented By: [facility] Vital Signs Vital signs: Vital Signs - 8 hr 04/25/23 18:45 04/25/23 18:45 04/25/23 18:47 Temperature 98.6 F Pulse Rate 76 79 Respiratory Rate 20 16 Blood Pressure 159/89 H 159/89 H Pulse Oximetry 99 99 Oxygen Delivery Method Room Air Room Air 04/25/23 19:00 04/25/23 19:00 04/25/23 19:30 Temperature Pulse Rate 76 74 Respiratory Rate 16 26 H Blood Pressure 132/78 Pulse Oximetry 99 98 Oxygen Delivery Method Room Air Room Air 04/25/23 19:30 04/25/23 20:00 04/25/23 20:00 Temperature Pulse Rate 68 Respiratory Rate 14 Blood Pressure 124/79 120/69 Pulse Oximetry 97 Oxygen Delivery Method Room Air 04/25/23 20:30 04/25/23 20:30 04/25/23 21:00 Temperature Pulse Rate 72 Respiratory Rate 12 Blood Pressure 113/76 106/72 Pulse Oximetry 98 Oxygen Delivery Method Room Air 04/25/23 21:00 Temperature Pulse Rate 72 Respiratory Rate 16 Blood Pressure Pulse Oximetry 97 Oxygen Delivery Method Room Air Medical Decision Making Differential Diagnosis Differential Diagnosis: ACS, shoulder pain, costochondritis Lab Data 04/25/23 18:45 04/25/23 18:45 Labs: Lab Results 04/25/23 04/25/23 Range/Units 18:45 20:45 WBC 5.5 (4.5-11.0) X10^3/uL RBC 4.64 (4.5-5.9) X10^6/uL Hgb 10.9 L (13.5-17.5) g/dL Hct 34.5 L (41-53) % MCV 74.3 L (80-100) fL MCH 23.5 L (26-34) PG MCHC 31.6 (30-36) % RDW 20.3 H (11.6-14.8) % Plt Count 341 (150-400) X10^3/uL Neut % (Auto) 61.8 (50-75) % Lymph % (Auto) 24.2 L (25-40) % [place] % (Auto) 10.0 (3-14) % Eos % (Auto) 2.8 (2-4) % Baso % (Auto) 1.2 (0-2) % Neut # (Auto) 3400 (6827-5530) /uL Lymph # (Auto) 1300 (9201-4394) /uL [place] # (Auto) 600 (0-900) /uL Eos # (Auto) 200 (0-450) /uL Baso # (Auto) 100 (0-100) /uL RBC Morphology See below Anisocytosis 1+ H PT 11.2 (9.4-12.5) SECONDS INR 1.0 (0.9-1.3) APTT 39 H (25.1-36.5) SECONDS Sodium 141 (137-145) mmol/L Potassium 4.0 (3.4-5.1) mmol/L Chloride 109 H (98-107) mmol/L Carbon Dioxide 21 L (22-32) mmol/L BUN 17 (9-20) mg/dL Creatinine 1.00 (0.66-1.25) mg/dL Estimated GFR > 60 (>60) mL/min BUN/Creatinine Ratio 17.0 (6-22) Glucose 122 H (80-110) mg/dL Calcium 9.8 (8.4-10.2) mg/dL Magnesium 2.1 (1.6-2.3) mg/dL Total Bilirubin 0.5 (0.2-1.3) mg/dL AST 30 (17-59) IU/L ALT 26 (<50) IU/L Alkaline Phosphatase 64 (38-126) U/L Total Creatine Kinase 106 (55-170) U/L Troponin I 0.012 < 0.012 (0.01-0.034) ng/mL Total Protein 8.8 H (6.3-8.2) g/dL Albumin 5.0 (3.5-5.0) g/dL Globulin 3.8 (1.7-4.1) g/dL Albumin/Globulin Ratio 1.3 (1.0-2.8) Lipase 180 (23-300) U/L Imaging Data Chest x-ray: Radiologist's Impression: PROCEDURE: XR CHEST 1V INDICATIONS: chest pain TECHNIQUE: One view of the chest was acquired. COMPARISON: [facility], , XR CHEST 1V, 04/06/2023, 14:54. [facility], , XR CHEST 1V, 04/03/2023, 14:54. [facility], CR, XR CHEST 1 VIEW, 04/03/2023, 23:12. FINDINGS: Surgical changes and devices: None. Lungs and pleura: On this semiupright portable chest examination, no large pneumothorax or large pleural effusions are seen. Mild, streaky opacities are seen at the lung bases, left worse than right. Mediastinum: The cardiac contours are within normal limits. The aorta demonstrates calcification and tortuosity. Bones and chest wall: No suspicious bony lesions. Age-appropriate bony degenerative changes are seen. Overlying soft tissues appear unremarkable. IMPRESSION: Presumed atelectasis is seen at the lung bases. Differential diagnosis includes minimal/early infiltrate, yet this is considered to be less likely. Dictated by: Navin Ching M.D. on 04/25/2023 at 18:26 Approved by: Navin Ching M.D. on 04/25/2023 at 18:27 ECG Data Interpretation: normal sinus rhythm 77bpm, normal OK, normal axis. no STEMI MDM Narrative Medical decision making narrative: Well-appearing patient with atraumatic left shoulder pain. Recent history of HI. Reports compliance with all of the medications prescribed by cardiology. Patient does state that he has been hypervigilant of his symptoms following his heart attack and came to the ER out of precaution. EKG sinus rhythm without concerning findings. Troponins x2 negative. Patient counseled on all lab and imaging findings, he has a cardiology appointment upcoming this month and he was counseled to keep that appointment as scheduled. ED return precautions discussed at bedside. Patient expressed understanding of the plan and is in agreement at this time. All questions answered at the time of discharge. Discharge Plan Departure Patient Disposition: Home Clinical Impression: Acute pain of left shoulder Instructions: DI for Chest Pain Activity Restrictions/Additional Instructions: Your troponin today were negative x2. Your EKG did not show any concerning findings. Please follow up as scheduled with your clinic clerk. No medication changes today. If you notice any new or worsening symptoms please come back to the emergency department for a recheck. Prescriptions: No Action cholecalciferol (vitamin D3) 1,250 mcg (50,000 unit) tablet 1,250 mcg PO QMONTH metoprolol succinate 25 mg tablet extended release 24 hr 25 mg PO DAILY aspirin 81 mg tablet,chewable 1 tab PO DAILY clopidogrel 75 mg tablet 75 mg PO DAILY atorvastatin 20 mg tablet 20 mg PO DAILY ferrous sulfate [FeroSul] 325 mg (65 mg iron) tablet 325 mg PO Q OTHER DAY tamsulosin 0.4 mg capsule 0.4 mg PO BEDTIME Qty: 90 3RF Referrals: David Solorio MD [Primary Care Provider] - Stand Alone Forms: Patient Portal/API
[2023-04-25 19:05] LABS: Prothrombin Time 11.2 SECONDS (9.4-12.5)
[2023-04-25 19:07] LABS: PTT Partial Thromboplastin Tim 39 SECONDS (25.1-36.5)
[2023-04-25 19:10] LABS: Alanine Aminotransferase 26 IU/L (<50); Albumin Globulin Ratio 1.3 (1.0-2.8); Alkaline Phosphatase 64 U/L (38-126); Aspartate Aminotransferase 30 IU/L (17-59); Bilirubin Total 0.5 mg/dL (0.2-1.3); Blood Urea Nitrogen 17 mg/dL (9-20); Calcium 9.8 mg/dL (8.4-10.2); Carbon Dioxide 21 mmol/L (22-32); Chloride 109 mmol/L (98-107); Creatine Kinase 106 U/L (55-170); Estimated Glomerular Filt Rate > 60 mL/min (>60); Globulin 3.8 g/dL (1.7-4.1); Glucose 122 mg/dL (80-110); HEMOLYSIS 17 (0-50); Lipase 180 U/L (23-300); Magnesium 2.1 mg/dL (1.6-2.3); Sodium 141 mmol/L (137-145); Total Protein 8.8 g/dL (6.3-8.2)
[2023-04-25 19:21] LABS: Troponin I 0.012 ng/mL (0.01-0.034)
[2023-04-25 19:44] LABS: Anisocytosis 1+
[2023-04-25 21:23] LABS: Troponin I < 0.012 ng/mL (0.01-0.034)
== END 2023-04-25 21:43 | disposition home or self-care (01) ==
PROVIDERS: Emergency Provider Emergency Medicine; PCP Internal Medicine
DX: M25.512 Pain in left shoulder (principal); R07.9 Chest pain, unspecified; I25.2 Old myocardial infarction
CPT/HCPCS: 71045; 80053; 82550; 83690; 83735; 84484; 85025; 85610; 85730; 93005; 93010; 99283; 99284

== ENCOUNTER → 2023-05-28 14:47 | Outpatient (CLI) | payer OTHER, MEDICARE, SELFPAY ==
[2023-05-28 15:12] LABS: Add Manual Diff / Slide Review NO; Basophils Absolute Auto 100 /uL (0-100); Basophils Percent Auto 1.1 % (0-2); Eosinophils Absolute Auto 100 /uL (0-450); Eosinophils Percent Auto 2.7 % (2-4); Hematocrit 31.6 % (41-53); Lymphocytes Absolute Auto 1200 /uL (1100-4500); Lymphocytes Percent Auto 25.8 % (25-40); Mean Corpuscular HGB Conc 31.8 % (30-36); Mean Corpuscular Hemoglobin 24.1 PG (26-34); Mean Corpuscular Volume 75.8 fL (80-100); Monocytes Absolute Auto 400 /uL (0-900); Monocytes Percent Auto 9.4 % (3-14); Neutrophils Absolute Auto 2900 /uL (1500-7000); Platelet Count 263 X10^3/uL (150-400); Red Blood Cell Count 4.17 X10^6/uL (4.5-5.9); Red Cell Distribution Width 19.3 % (11.6-14.8); White Blood Cell Count 4.7 X10^3/uL (4.5-11.0)
[2023-05-28 16:01] LABS: HEMOLYSIS < 15 (0-50)
[2023-05-28 16:07] LABS: Alanine Aminotransferase 36 IU/L (<50); Albumin 4.5 g/dL (3.5-5.0); Albumin Globulin Ratio 1.6 (1.0-2.8); Alkaline Phosphatase 57 U/L (38-126); Aspartate Aminotransferase 33 IU/L (17-59); BUN Creatinine Ratio 26.7 (6-22); Bilirubin Total 0.5 mg/dL (0.2-1.3); Blood Urea Nitrogen 23 mg/dL (9-20); Calcium 9.5 mg/dL (8.4-10.2); Carbon Dioxide 23 mmol/L (22-32); Chloride 107 mmol/L (98-107); Estimated Glomerular Filt Rate > 60 mL/min (>60); Globulin 2.8 g/dL (1.7-4.1); Glucose 96 mg/dL (80-110); Potassium 3.8 mmol/L (3.4-5.1); Sodium 137 mmol/L (137-145); Total Protein 7.3 g/dL (6.3-8.2)
[2023-05-28 20:32] LABS: HEMOLYSIS < 15 (0-50); Iron 122 ug/dL (49-181)
[2023-05-28 20:42] LABS: Percent Iron Saturation 29 % (20-50); Total Iron Binding Capacity 424 ug/dL (261-462); Transferrin 339 mg/dL (206-381)
[2023-05-29 03:03] LABS: Carcinoembryonic Antigen 2.8 ng/mL (0.1-3.0)
== END ==
PROVIDERS: PCP Internal Medicine; Referring Provider Internal Medicine; Visit Provider Internal Medicine
DX: D64.9 Anemia, unspecified (principal); I10 Essential (primary) hypertension; D50.9 Iron deficiency anemia, unspecified; I25.10 Atherosclerotic heart disease of native coronary artery without angina pectoris
CPT/HCPCS: 80053; 82378; 83540; 83550; 85025

== ENCOUNTER → 2023-06-02 11:19 | Outpatient (CLI) | payer MEDICARE, OTHER, SELFPAY ==
--- NOTE | 2023-06-02 11:21 | DI.RAD.S_ITS ---
PROCEDURE: XR DEXA AXIAL SKELETON INDICATIONS: osteoporosis COMPARISON: [facility], CR, XR DEXA AXIAL SKELETON, 09/26/2020, 12:05. FINDINGS: Lumbar Spine: L3-L4. Bone mineral density 0.849 g/cm2, T score -2.3. Left Hip: Bone mineral density 0.870 g/cm2, T score -0.6. Left Femoral Neck: Bone mineral density 0.702 g/cm2, T score -1.3. Right Hip: Bone mineral density 0.823 g/cm2, T score -1.0. Right Femoral Neck: Bone mineral density 0.652 g/cm2, T score -1.8. Fracture Risk Calculation (when applicable): 10-year fracture risk of a major osteoporotic fracture 7.6% and of a hip fracture 1.6%. (T score greater or equal to -1.0 to: NORMAL) (T score from -1.1 to -2.4: OSTEOPENIA) (T score less than or equal to -2.5: OSTEOPOROSIS) IMPRESSION: Osteopenia. Dictated by: Luiz Angel M.D. on 06/04/2023 at 11:03 Approved by: Luiz Angel M.D. on 06/04/2023 at 11:04
== END ==
LOC: RAD 11:19
PROVIDERS: PCP Internal Medicine; Referring Provider Internal Medicine; Visit Provider Internal Medicine
DX: M81.0 Age-related osteoporosis without current pathological fracture (principal)
CPT/HCPCS: 77080

== ENCOUNTER 2023-07-14 06:42 | Day surgery (SDC) | payer MEDICARE, OTHER, SELFPAY ==
--- NOTE | 2023-07-14 | PATH_ITS ---
[facility] Accession Number: [id number] No. of containers..02 Tissue . 01 Material submitted: . PART A: gastrointestinal site - GASTRIC PART B: colon - SIGMOID POLYP . 01 Diagnosis: A. STOMACH, BIOPSY: Helicobacter pylori gastritis. A moderate number of forms morphologically consistent with Helicobacter pylori highlighted by immunohistochemistry. Negative for intestinal metaplasia. Negative for dysplasia and malignancy. . B. SIGMOID COLON POLYP: Tubular adenoma x1. Hyperplastic polyp x1. [facility] 07/20/2023 1105 Local . 01 Electronically signed: . Florencio Emerson MD, PhD, Pathologist NPI- [id number] . 01 Gross description: . A. Received in formalin with two identifiers and gastric biopsy, are multiple purcell soft tissue fragments aggregating to 0.4 x 0.3 x 0.1 cm. Filtered and submitted entirely in A1. B. Received in formalin with two identifiers and sigmoid polyp, are multiple purcell soft tissue fragments aggregating to 0.5 x 0.4 x 0.2 cm. Filtered and submitted entirely in B1. ([id number]) /MRV 07/16/2023 1813 Local . 01 Microscopic: . An immunohistochemical stain was performed to evaluate for Helicobacter organisms and highlights a moderate number of forms morphologically consistent with Helicobacter pylori. The control stain showed appropriate reactivity. . 01 Pathologist provided ICD-10: K29.70, B96.81, D12.5 . 01 CPT . 877647, 233765, G76329 Specimen Comment: A courtesy copy of this report has been sent to [phone] Performed at: [address] [facility], [place], [place] [id number] MD Alan Eden MD Phone: [phone]
[2023-07-14 07:15] VITALS: BP 113/74; PULSE 64; RESP 16; TEMP 36.2; O2SAT 97; BMI 26.9
[2023-07-14] MEDS: LACTATED RINGERS 1,000 ML 100 ML IV (07:37)
--- NOTE | 2023-07-14 07:43 | P.HP_ITS ---
History of Present Illness History of Present Illness Date Patient Seen: 07/14/23 Time Patient Seen: 07:43 Chief complaint: [facility] [place] Narrative: 63-year-old man with anemia here for diagnostic upper and lower endoscopy. No interval changes in health. No chest pain shortness of breath doing exceptionally well in cardiac rehab. [facility] Medical History ST elevation myocardial infarction (STEMI) Iron deficiency anemia (~03/2023) Coronary artery disease (~04/03/23) Balanitis Elevated PSA Right ureteral calculus Osteopenia Balanitis Hearing loss Double vision (~2018) Hemorrhoid (~2010) ASD (atrial septal defect) (~1958) Anxiety, generalized (~2014) Hypogonadism male (~2014) Lower urinary tract symptoms (LUTS) Inguinal hernia Enlarged prostate Prostatitis Surgical History H/O heart artery stent Anesthesia Hernia of anterior abdominal wall (~1981) S/P shoulder surgery (~2003) S/P cholecystectomy (~2004) Family History Father Stroke Mother Stroke Brother Oral cancer Social History marital status: household members: spouse lives independently: Yes occupational status: previously employed Smoking Status: Never smoker alcohol intake: current substance use type: does not use Meds Home Medications and Allergies Home Medications Medication Instructions Recorded Confirmed Type cholecalciferol (vitamin D3) 1,250 1,250 mcg PO QMONTH 08/08/19 05/28/23 History mcg (50,000 unit) tablet tamsulosin 0.4 mg capsule 0.4 mg PO BEDTIME #90 caps 12/31/22 07/14/23 Rx aspirin 81 mg chewable tablet 1 tab PO DAILY 04/09/23 07/14/23 History clopidogrel 75 mg tablet 75 mg PO DAILY 04/09/23 07/14/23 History metoprolol succinate 25 mg 25 mg PO DAILY 04/09/23 07/14/23 History tablet,extended release 24 hr sodium,potassium,mag sulfates 17.5 See Rx Instructions PO .COMPLEX 05/27/23 05/28/23 Rx gram-3.13 gram-1.6 gram oral soln #354 mL (Suprep Bowel Prep Kit) atorvastatin 40 mg tablet 40 mg PO DAILY 05/28/23 07/14/23 History ferrous gluconate 225 mg (27 mg 225 mg PO DAILY #90 tabs 05/28/23 07/14/23 Rx iron) tablet Allergies Allergy/AdvReac Type Severity Reaction Status Date / Time Penicillins AdvReac Intermediate Hospitalized Verified 07/14/23 07:37 as child Exam Narrative Exam Narrative: General adult man alert oriented no acute distress Chest nonlabored respiration Extremities warm well perfused Assessment & Plan Assessment & Plan narrative: 63-year-old anemia here for diagnostic upper and lower endoscopy. Procedure again reviewed including its risks benefits and alternatives. He elects to proceed and provides his consent
--- NOTE | 2023-07-14 07:46 | PM.OP.EC ---
Operative Date/Time/Diagnoses Date of procedure: 07/14/23 Time of procedure: 08:35 Pre-op diagnosis: Anemia Post-op diagnosis: other (Gastritis, colonic polyp x2) Procedure & Clinicians Study performed: Diagnostic esophagogastroduodenoscopy and colonoscopy Same procedure as scheduled: Yes Indications: Anemia Surgeon: Stanley Sherwood Procedure Notes Procedure in detail: The history and physical was performed/updated and the patient is ASA class is 2. The procedure was discussed in detail with the patient. Potential risks complications including infection, bleeding, missed diagnosis, perforation, need for surgery, and were explained. Their questions were answered and informed consent was obtained. Patient placed in left lateral decubitus position. Time out was performed. Procedural sedation was administered by Anesthesia. A bite block was placed. the scope was inserted into the mouth and advanced through the esophagus and into the stomach. the pylorus was intubated and the duodenum was examined to the 2nd portion.. The scope was retroflexed within the stomach. The stomach was then decompressed and scope pulled back to the GE junction. The scope was then removed Examination began with a thorough inspection of the perianal area there was no evidence of fissures, fistulae, external hemorrhoids or cutaneous malignancy. The colonoscopy scope was then placed into the anal canal and was advanced to the cecum, which was identified by the ileocecal valve, the appendiceal orifice and the confluence of the taenia. The scope was then slowly withdrawn examining colon thoroughly in all directions, irrigating it of any residual stool. FINDINGS -Mild gastritis without active hemorrhage within gastric body. Biopsies taken with forceps -Sigmoid colon polyps 3 mm x 2 removed with biopsy forceps -internal hemorrhoids The patient tolerated the procedure well. They will be discharged once criteria are met. The prep was of good/excellent quality. The withdrawl time was 8 minutes. Specimen(s): other (Sigmoid colon polyps x2, gastric biopsy.) Impression: Colonic polyps x2, gastritis Post-procedure Plan for aftercare: Omeprazole 20 mg once daily x6 weeks Disposition: same day surgery
[2023-07-14 08:31] VITALS: BP 95/55; PULSE 57; RESP 11; TEMP 36.4; O2SAT 91
[2023-07-14 08:37] VITALS: BP 107/69; PULSE 61; RESP 14; O2SAT 93
[2023-07-14 08:41] VITALS: BP 114/81; PULSE 58; RESP 19; TEMP 36.7; O2SAT 95
== END 2023-07-14 09:10 | disposition home or self-care (01) ==
PROVIDERS: PCP Internal Medicine; Referring Provider Surgery; Visit Provider Surgery
PROC: 0DJ08ZZ Inspection of Upper Intestinal Tract, Via Natural or Artificial Opening Endoscopic (ICD-10-PCS; CPT 43235; principal; 2023-07-14 07:45)
PROC: 0DJD8ZZ Inspection of Lower Intestinal Tract, Via Natural or Artificial Opening Endoscopic (ICD-10-PCS; CPT 45378; 2023-07-14 07:45)
DX: D50.9 Iron deficiency anemia, unspecified (principal); K64.8 Other hemorrhoids; K29.60 Other gastritis without bleeding; B96.81 Helicobacter pylori [H. pylori] as the cause of diseases classified elsewhere; D12.5 Benign neoplasm of sigmoid colon
CPT/HCPCS: 45380; 43239; J2704

== ENCOUNTER → 2023-08-03 06:49 | Outpatient (CLI) | payer MEDICARE, OTHER, SELFPAY ==
[2023-08-03 08:43] LABS: Cholesterol 123 mg/dL (140-199); HDL Cholesterol 55 mg/dL (40-60); LDL Cholesterol Calculated 55 mg/dL (<100); Triglycerides 67 mg/dL (35-150)
[2023-08-06 02:09] LABS: Lipoprotein (a) 14.3 nmol/L (<75.0)
== END ==
PROVIDERS: PCP Internal Medicine; Referring Provider Internal Medicine Cardiovascular Disease; Visit Provider Internal Medicine Cardiovascular Disease
DX: I25.10 Atherosclerotic heart disease of native coronary artery without angina pectoris (principal)
CPT/HCPCS: 36415; 80061; 83695

== ENCOUNTER → 2023-08-24 16:07 | Outpatient (CLI) | payer MEDICARE, OTHER, SELFPAY ==
[2023-08-24 17:20] LABS: Add Manual Diff / Slide Review NO; Basophils Absolute Auto 0 /uL (0-100); Basophils Percent Auto 0.8 % (0-2); Eosinophils Absolute Auto 100 /uL (0-450); Eosinophils Percent Auto 2.5 % (2-4); Hematocrit 30.9 % (41-53); Hemoglobin 9.7 g/dL (13.5-17.5); Lymphocytes Absolute Auto 1300 /uL (1100-4500); Lymphocytes Percent Auto 28.4 % (25-40); Mean Corpuscular HGB Conc 31.5 % (30-36); Mean Corpuscular Volume 73.2 fL (80-100); Monocytes Absolute Auto 500 /uL (0-900); Monocytes Percent Auto 10.6 % (3-14); Neutrophils Absolute Auto 2700 /uL (1500-7000); Neutrophils Percent Auto 57.7 % (50-75); Platelet Count 220 X10^3/uL (150-400); Red Blood Cell Count 4.22 X10^6/uL (4.5-5.9); Red Cell Distribution Width 16.6 % (11.6-14.8); White Blood Cell Count 4.7 X10^3/uL (4.5-11.0)
[2023-08-24 18:02] LABS: HEMOLYSIS < 15 (0-50); Iron 69 ug/dL (49-181)
[2023-08-24 18:05] LABS: HEMOLYSIS < 15 (0-50)
[2023-08-24 18:14] LABS: Percent Iron Saturation 17 % (20-50); Total Iron Binding Capacity 396 ug/dL (261-462); Transferrin 295 mg/dL (206-381)
[2023-08-24 18:16] LABS: Alanine Aminotransferase 23 IU/L (<50); Albumin 4.2 g/dL (3.5-5.0); Albumin Globulin Ratio 1.6 (1.0-2.8); Alkaline Phosphatase 56 U/L (38-126); Aspartate Aminotransferase 30 IU/L (17-59); BUN Creatinine Ratio 19.6 (6-22); Bilirubin Total 0.5 mg/dL (0.2-1.3); Blood Urea Nitrogen 19 mg/dL (9-20); Calcium 8.7 mg/dL (8.4-10.2); Carbon Dioxide 23 mmol/L (22-32); Chloride 106 mmol/L (98-107); Estimated Glomerular Filt Rate > 60 mL/min (>60); Globulin 2.7 g/dL (1.7-4.1); Glucose 117 mg/dL (80-110); Potassium 3.9 mmol/L (3.4-5.1); Sodium 138 mmol/L (137-145); Total Protein 6.9 g/dL (6.3-8.2)
== END ==
PROVIDERS: PCP Internal Medicine; Referring Provider Internal Medicine; Visit Provider Internal Medicine
DX: D50.9 Iron deficiency anemia, unspecified (principal); R97.20 Elevated prostate specific antigen [PSA]
CPT/HCPCS: 36415; 80053; 83540; 83550; 84153; 85025

== ENCOUNTER 2023-09-03 10:15 | Outpatient (RCR) | payer MEDICARE, OTHER, SELFPAY ==
--- OUTSIDE RECORDS SUMMARY | 2023-05-06 08:40 | XMS_ITS | Referral Summary ---
Author Name Unknown Organization [facility] Address [address] [place] [address] Care Team Providers Care Slater Apprentice Name Role Phone David Solorio Primary Care Provider [phone] Reason for Referral * - Authorized Specialty Diagnoses / Procedures Referred By Jeannine alvarado Referred To Contact Cardiac Rehabilitation Diagnoses History of heart artery stent History of ST elevation myocardial infarction (STEMI) Marielos Ribeiro MD [address] [place] [address] [address] [place] [address] [address] Referral ID Status Reason Start Date Expiration Date V isits Requested Visits Authorized [id number] Authorized 05/05/2023 04/29/2024 1 1 * Diagnostic Imaging (Urgent) - Pending Review Specialty Diagnoses / Procedures Referred By Jeannine alvarado Referred To Contact Radiology Diagnoses ASHD (arteriosclerotic heart disease) History of atrial septal defect Procedures ECHOCARDIOGRAM COMPLETE Marielos Ribeiro MD [address] [place] [address] [address] [place] [address] Referral ID Status Reason Start Date Expiration Date Visits Requested Visits Authorized [id number] Pending Review Specialty Services Required 05/05/2023 04/29/2024 1 1 Reason for Visit * Reason Comments Heart Problem Encounter Details Date Type Department Care Team Description 05/05/2023 12:00 PM PDT Office Visit [facility] Cardiology [place] [address] [place] [address] Evens Ingram MD [address] [address] [place] [address] Marielos Ribeiro MD [address] [address] [place] [address] ASHD (arteriosclerotic heart disease) (Primary Dx); History of heart artery stent; History of ST elevation myocardial infarction (STEMI); History of atrial septal defect Allergies Active Allergy Reactions Criticality Noted Date Comments Penicillins Other (see comments) High 01/31/2010 States that it caused a Fever documented as of this encounter (statuses as of 05/05/2023) Medications Medication Sig Dispensed Refills Start Date End Date Status tamsulosin (FLOMAX) 0.4 mg capsule Take 1 capsule (0.4 mg total) by mouth nightly 0 Active aspirin 81 mg chewable tablet Take 1 tablet (81 mg total) by mouth daily 90 tablet 0 04/06/2023 Active ferrous sulfate 325 mg (65 mg iron) tablet Take 1 tablet (325 mg total) by mouth every other day 90 tablet 0 04/06/2023 Active cholecalciferol (VITAMIN D3) 125 mcg (5,000 unit) tablet oral tablet Take 1 tablet (5,000 Units total) by mouth daily 0 10/26/2014 Active clopidogreL (PLAVIX) 75 mg tablet Take 1 tablet (75 mg total) by mouth daily 90 tablet 3 05/05/2023 05/04/2024 Active atorvastatin (LIPITOR) 40 mg tablet Take 1 tablet (40 mg total) by mouth nightly 90 tablet 3 05/05/2023 05/04/2024 Active metoprolol succinate XL (TOPROL-XL) 25 mg 24 hr tablet Take 1 tablet (25 mg total) by mouth daily Hold if top BP less than 95 90 tablet 3 05/05/2023 05/04/2024 Active clopidogreL (PLAVIX) 75 mg tablet Take 1 tablet (75 mg total) by mouth daily 90 tablet 0 04/06/2023 05/05/2023 Discontinued (Reorder) atorvastatin (LIPITOR) 20 mg tablet Take 1 tablet (20 mg total) by mouth nightly 30 tablet 11 04/05/2023 05/05/2023 Discontinued (Reorder) metoprolol succinate XL (TOPROL-XL) 25 mg 24 hr tablet Take 1 tablet (25 mg total) by mouth daily 90 tablet 0 04/06/2023 05/05/2023 Discontinued (Reorder) metoprolol succinate XL (TOPROL-XL) 25 mg 24 hr tablet Take 1 tablet (25 mg total) by mouth daily 90 tablet 3 05/05/2023 05/05/2023 Discontinued (Reorder) documented as of this encounter (statuses as of 05/05/2023) Active Problems Problem Noted Date Diagnosed Date Bilateral inguinal hernia 11/18/2018 Colon polyp 05/18/2017 Hypogonadism male 10/26/2014 Vitamin D deficiency 10/26/2014 Osteoporosis 08/08/2014 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 No 04/04/2023 Within the last year, have y ou been humiliated or emotionally abused in other ways by your partner or ex-partner? No Within the last year, have y ou been kicked, hit, slapped, or otherwise physically hurt by your partner or ex-partner? No 04/04/2023 Within the last year, have y ou been raped or forced to have any kind of sexual activity by your partner or ex-partner? No 04/04/2023 Overall Financial Resource Strain (CARDIA) Answe r Date Recorded How hard is it for you to pa y for the very basics like food, housing, medical care, and heating? Not hard at all 04/04/2023 Hunger Vital Sign Answer Date Recorded Within the past 12 months, y ou worried that your food would run out before you got the money to buy more. Never true 04/04/19 24 Within the past 12 months, t he food you bought just didn't last and you didn't have money to get more. Never true 04/04/2023 PRAPARE - Transportation Answer Date Re corded In the past 12 months, has l ack of transportation kept you from medical appointments or from getting medications? No 03/19 In the past 12 months, has l ack of transportation kept you from meetings, work, or from getting things needed for daily living? No 04/04/2023 Housing Stability Vital Sign Answer Barry e Recorded In the last 12 months, was t here a time when you were not able to pay the mortgage or rent on time? No 04/04/2023 In the last 12 months, how many places have you lived? 1 04/04/2023 In the last 12 months, was t here a time when you did not have a steady place to sleep or slept in a mcc (including now)? No 04/04/2023 Sex and Gender Information Value Date Recorded Sex Assigned at Male 04/04/2023 12:47 AM PST Gender Identity Male 04/04/2023 12:47 AM PST Sexual Orientation Not on file Job Start Date Occupation Industry Not on file Not on file Not on file documented as of this encounter Last Filed Vital Signs Vital Sign Reading Time Taken Comments Blood Pressure 98/68 05/05/2023 11:45 AM PDT Pulse 70 05/05/2023 11:45 AM PDT Temperature - - Respiratory Rate - - Oxygen Saturation - - Inhaled Oxygen Concentration - - Weight 113 kg (249 lb 14.4 oz) 05/05/2023 11:45 AM PDT Height 203.2 cm (6' 8) 05/05/2023 11:45 AM PDT Body Mass Index 27.45 05/05/2023 11:45 AM PDT documented in this encounter Progress Notes * Marielos Ribeiro MD - 05/05/2023 12:00 PM PDT Increase atorvastatin from 20mg daily to 40mg daily in the evening/night. * Marielos Ribeiro MD - 05/05/2023 12:00 PM PDT Subjective Patient ID: Ilir Han is a 63 y.o. male that presents today for had concerns including Heart Problem. HPI: 63 yo M h/o CAD here for F/U on his CAD. Patient is here with his . Patient's mother sees me as well. Since his hospitalization for his DC that was treated with RCA stent, he has done well. Denies chest pain, dyspnea, palpitations, lightheadedness, or syncope. He walks up stairs and walks 3 miles regularly without any issue. PROBLEM LIST: # CAD s/p RCA stent 04/03/2023 in the setting of STEMI # ASD diagnosed at young age. Not noted on Echo 03/2023 Past Medical History: Diagnosis Date Atrial septal defect Chronic prostatitis Coronary artery disease Hypogonadism in male Prediabetes Past Surgical History: Procedure Laterality Date ABDOMINAL HERNIA REPAIR CHOLECYSTECTOMY COLONOSCOPY SHOULDER SURGERY Family History Problem Relation Age of Onset Stroke Mother Arrhythmia Mother Stroke Father Social History Socioeconomic History Marital status: Tobacco Use Smoking status: Never Smokeless tobacco: Never Allergies Allergen Reactions Penicillins Other (see comments) States that it caused a Fever Current Medication List Sig aspirin 81 mg chewable tablet Take 1 tablet (81 mg total) by mouth daily cholecalciferol (VITAMIN D3) 125 mcg (5,000 unit) tablet oral tablet Take 1 tablet (5,000 Units total) by mouth daily ferrous sulfate 325 mg (65 mg iron) tablet Take 1 tablet (325 mg total) by mouth every other day tamsulosin (FLOMAX) 0.4 mg capsule Take 1 capsule (0.4 mg total) by mouth nightly atorvastatin (LIPITOR) 20 mg tablet (Discontinued) Take 1 tablet (20 mg total) by mouth nightly clopidogreL (PLAVIX) 75 mg tablet (Discontinued) Take 1 tablet (75 mg total) by mouth daily metoprolol succinate XL (TOPROL-XL) 25 mg 24 hr tablet (Discontinued) Take 1 tablet (25 mg total) by mouth daily atorvastatin (LIPITOR) 40 mg tablet Take 1 tablet (40 mg total) by mouth nightly clopidogreL (PLAVIX) 75 mg tablet Take 1 tablet (75 mg total) by mouth daily metoprolol succinate XL (TOPROL-XL) 25 mg 24 hr tablet Take 1 tablet (25 mg total) by mouth daily Hold if top BP less than 95 metoprolol succinate XL (TOPROL-XL) 25 mg 24 hr tablet (Discontinued) Take 1 tablet (25 mg total) by mouth daily Review of Systems Objective BP 98/68 (BP Location: Left arm, Patient Position: Sitting) Pulse 70 Ht 2.032 m Wt 113 kg BMI 27.45 kg/m?? Physical Exam: General appearance: No apparent distress, well-nourished, pleasant, cooperative HEET: Normocephalic atraumatic, no scleral icterus, tongue midline, mucous membranes moist Neck: supple Cardiovascular: RRR, normal S1 and normal S2, no murmurs/ rubs/gallops, PMI nondisplaced, no JVD, no peripheral edema Respiratory: Good aeration, CTAB Abdomen: Soft, nontender, nondistended, + bowel sounds Neuro: Alert, no facial droop, tongue midline, no gross motor deficits Psych: appropriate affect Skin: no rashes on face, neck, and lower extremities Cath 04/03/2023:MANUEL to RCA Echo 04/04/2023: 1. Normal LV size and borderline normal systolic function. Moderate hypokinesis of the basal and mid inferior wall. The estimated ejection fraction is 50-55%. RV is borderline dilated with normal systolic function. 2. Moderate left atrial enlargement. Right atrium is mildly dilated. 3. Age appropriate valve changes. No hemodynamically significant valvular heart diseaeses. 4. No pericardial effusion. 5. Contrast enhanced study to assess for intra-cardiac shunt and wall motion abnormalitiies. No clear evidence of intra-cardiac shunt. Wall motion abnormalities are noted as above. Assessment/Plan Comments: 1. ASHD (arteriosclerotic heart disease) Lipid panel, Lipoprotein (a), ECHOCARDIOGRAM COMPLETE 2. History of heart artery stent Ambulatory Referral to Cardiac Rehabilitation 3. History of ST elevation myocardial infarction (STEMI) Ambulatory Referral to Cardiac Rehabilitation 4. History of atrial septal defect ECHOCARDIOGRAM COMPLETE # CAD s/p RCA stent 04/03/2023 in the setting of STEMI. Patient doing well and without symptoms. Plan: - Continue aspirin 81mg daily - Continue clopidogrel 75mg daily (stop date 04/03/2024) - Increase atorvastatin from 20mg at bedtime to 40mg at bedtime - Continue metoprolol XL 25mg daily, hold if SBP < 95 - Refer to cardiac rehab # ASD diagnosed at young age. Not noted on Echo 03/2023 - Echo as pending. # Pre c-scope: it would be preferable to hold off c-scope for 3 months (until 07/02/2023) before c-scope. F/U in 3 months with echo and labs [including lipoprotein (a)]. Electronically signed by Marielos Ribeiro MD 05/05/2023 12:26 PM documented in this encounter Plan of Treatment Upcoming Encounters Date Type Department Care Team Description 07/29/2023 2:40 PM PDT Office Visit [facility] Gastroenterology [address] [address] Amanuel Burleson MD [address] [address] Scheduled Orders Name Type Priority Associated Diagnoses Order Schedule Lipid panel Lab Routine ASHD (arteriosclerotic heart disease) Expected: 08/05/2023, Expires: 11/04/2024 Lipoprotein (a) Lab Routine ASHD (arteriosclerotic heart disease) Expected: 08/05/2023, Expires: 05/04/2024 ECHOCARDIOGRAM COMPLETE Imaging Urgent ( Imaging Only) ASHD (arteriosclerotic heart disease) History of atrial septal defect Expected: 08/05/2023, Expires: 11/25/2026 Scheduled Referrals Name Type Priority Associated Diagnoses Order Schedule Ambulatory Referral to Cardiac Rehabilitation Outpatient Referral Routine History of heart artery stent History of ST elevation myocardial infarction (STEMI) Ordered: 05/05/2023 documented as of this encounter Medical Devices Implanted Type Area Sales And Marketing Coordinator Device Identifier Shelf Expiration Date Model / Serial / Lot Stent, 5.00x22 Redmon Larsen - [id number] Implanted:Qty: 1 on 04/03/2023 by Ricky Stewart MD at [facility] N/A: Coronary Medtronic [id number] / / [employer] - [id number] Implanted:Qty: 1 on 04/03/2023 by Magnus Coates, RT at [facility] Right: Arterial ORDOÑEZ [id number] / / documented as of this encounter Visit Diagnoses Diagnosis ASHD (arteriosclerotic heart disease)- Primary Coronary atherosclerosis of unspecified type of vessel, redding or graft History of heart artery stent History of ST elevation myocardial infarction (STEMI) History of atrial septal defect Personal history of other diseases of circulatory system documented in this encounter Advance Directives Latest Code Status on File Code Status Date Activated Date Inactivated Comments Full Code 04/03/2023 7:48 PM 04/05/2023 4:36 PM Code Status History Code Status Date Activated Date Inactivated Comments Full Code 04/03/2023 7:46 PM 04/03/2023 7:48 PM Care Teams Slater Apprentice Relationship Specialty Start Date End Date David Solorio [address] [facility] [address] [place] [address] PCP - General Internal Medicine 04/03/23 documented as of this encounter
== END 2023-09-03 12:15 ==
LOC: CAR 10:15
PROVIDERS: PCP Internal Medicine; Referring Provider Internal Medicine Cardiovascular Disease; Visit Provider Internal Medicine Cardiovascular Disease
DX: I21.3 ST elevation (STEMI) myocardial infarction of unspecified site (principal)
CPT/HCPCS: 93798

== ENCOUNTER → 2023-09-18 10:00 | Outpatient (CLI) | payer MEDICARE, OTHER, SELFPAY ==
--- NOTE | 2023-09-18 10:01 | DI.US.S_ITS ---
PROCEDURE: US ABDOMEN LIMITED INDICATIONS: RLQ pain TECHNIQUE: Real-time scanning was performed of the abdominal and retroperitoneal organs, with image documentation. COMPARISON: [facility], , US ABDOMEN LIMITED, 04/25/2021, 7:20. FINDINGS: Detailed evaluation of the right lower quadrant failed to identify the appendix. There is no free fluid or abscess in the right lower quadrant adenopathy. No tenderness was present during the exam. IMPRESSION: Nonvisualized appendix. Appendicitis not excluded. Approved by: Chris hWite M.D. on 09/18/2023 at 11:21
== END ==
PROVIDERS: PCP Internal Medicine; Referring Provider Family Medicine; Visit Provider Family Medicine
DX: R10.31 Right lower quadrant pain (principal)
CPT/HCPCS: 76705

== ENCOUNTER → 2024-01-18 16:46 | Outpatient (CLI) | payer MEDICARE, OTHER, SELFPAY ==
--- NOTE | 2024-01-18 16:47 | DI.RAD.S_ITS ---
PROCEDURE: XR KUB INDICATIONS: Hematuria TECHNIQUE: One view of the abdomen acquired. COMPARISON: [facility], CT, CT KIDNEY URETER BLADDER (KUB), 01/08/2021, 12:54. [facility], CR, XR KUB, 02/04/2021, 12:54. FINDINGS: Surgical changes and devices: Right upper quadrant surgical clips Bowel: Bowel gas pattern is normal. Soft tissues: No suspicious abdominal calcifications. Visualized solid organ contours appear normal in size. Bones: No suspicious bony lesions. Chronic right L5-S1 pars defect IMPRESSION: No radiopaque nephrolithiasis. Dictated by: Alex Phillips M.D. on 01/19/2024 at 11:59 Approved by: Alex Phillips M.D. on 01/19/2024 at 12:10
== END ==
PROVIDERS: PCP Internal Medicine; Referring Provider Nurse Practitioner Family; Visit Provider Nurse Practitioner Family
DX: R31.9 Hematuria, unspecified (principal)
CPT/HCPCS: 74018

== ENCOUNTER → 2024-01-25 10:49 | Outpatient (CLI) | payer MEDICARE, OTHER, SELFPAY ==
[2024-01-25 13:00] LABS: Prostate Specific Antigen 2.29 ng/mL (0.10-4.00)
== END ==
PROVIDERS: PCP Internal Medicine; Referring Provider Urology; Visit Provider Urology
DX: R97.20 Elevated prostate specific antigen [PSA] (principal); N40.1 Benign prostatic hyperplasia with lower urinary tract symptoms; N13.8 Other obstructive and reflux uropathy
CPT/HCPCS: 36415; 84153

== ENCOUNTER → 2024-07-07 07:58 | Outpatient (CLI) | payer MEDICARE, OTHER, SELFPAY ==
--- NOTE | 2024-07-07 08:00 | DI.ECHO.S_ITS ---
[place] [facility] : : [address] : : [place] : : [id number] : : Phone: [phone] Echocardiogram Report + + :Name: GEORGE RENEE Study Date: 07/07/2024 Height: 80 in : :[facility] ReadingLocation: Weight: 255 lb : : Gender: Male BSA: 2.5 m2 : :: 1960 Age: 64 yrs BP: 124/80 mmHg: :Reason For Study: MITRAL VALVE REGURGITATION : :Ordering Physician: EUN, : :DOREEN Performed By: Iris Watson : :Referring: DOREEN RIBEIRO : + + Interpretation Summary 1) Normal left ventricular size and thickness with low normal systolic function (EF 50-55%). 2) The mid to distal inferolateral wall is hypokinetic. 3) Upper normal right ventricular size with normal function. 4) Unable to rule out posterior leaflet prolapse of the mitral valve. 5) Moderate mitral regurgitation suspected. Two jets present and one of them is eccentric (anteriorly directed). 6) Compared to the Echo done 08/05/2023, no significant change. Procedure: A two-dimensional transthoracic echocardiogram with color flow and Doppler was performed. The study quality was technically adequate. Comparison is made with the echocardiogram of 08/05/2023. The patient had occasional PVCs during the exam. The patient was in sinus bradycardia with heart rates between 54-61 bpm during the exam. Left Ventricle: The left ventricle is normal in size and wall thickness. The estimated left ventricular end diastolic volume based in BSA is 59.84 ml/m2. The ejection fraction is estimated to be 50-55%. The mid to distal inferolateral wall is hypokinetic. Diastolic parameters suggest a relaxation abnormality of the left ventricle, consistent with probable normal filling pressures. Right Ventricle: The right ventricle is at the upper limits of normal in size. The right ventricular systolic function is normal. Atria: The left atrium is moderately dilated. Right atrial size is normal. There is no Doppler evidence for an interatrial shunt. Mitral Valve: There is borderline mitral valve prolapse. There is moderate mitral regurgitation. The mitral regurgitant jet is eccentrically directed. Multiple jets present. Aortic Valve: The aortic valve is mildly calcified. The aortic valve is trileaflet. The peak aortic velocity is 1.9 m/sec. No aortic regurgitation is present. Tricuspid Valve: The tricuspid valve leaflets are thin and pliable. There is mild tricuspid regurgitation. The right ventricular systolic pressure is estimated to be at least 24 mmHg based on an estimated right atrial pressure of 3 mm Hg. Pulmonic Valve: The pulmonic valve leaflets are thin and pliable; valve motion is normal. There is mild pulmonic regurgitation. Great Vessels: The aortic root is normal size. The dimensions of the ascending aorta are normal. The inferior vena cava was not well visualized. Pericardium/ Pleura There is no pericardial effusion. There is no pleural effusion. MMode/2D Measurements & Calculations LVIDd: 4.7 cm Ao root diam: 3.8 cm LVIDs: 3.4 cm asc Aorta Diam: 3.3 cm FS: 27.4 % Ao Arch Diam (Prox Trans): 2.8 cm IVSd: 0.85 cm LVPWd: 0.88 cm LV traecy. diameter/BSA (cm/m^2): 1.8 LV sys. diameter/BSA (cm/m^2): 1.3 LA A2 area: 26.7 cm2 RA long axis: 5.8 cm LA A4 area: 27.5 cm2 RA area: 20.3 cm2 LA length (vol): 7.2 cm RA vol: 60.1 ml LA vol: 86.7 ml RA : 23.6 ml/m2 LA vol index: 34.0 ml/m2 RVD1 (basal): 4.0 cm RVD2 (mid): 3.8 cm TAPSE: 2.4 cm Doppler Measurements & Calculations Ao V2 max: 190.0 cm/sec LVOT Max Gael: 123.0 cm/sec Ao V2 mean: 131.1 cm/sec LV V1 max P.1 mmHg Ao max P.4 mmHg LV V1 VTI: 27.4 cm Ao mean P.7 mmHg sev ratio: 0.67 Ao V2 VTI: 40.9 cm MV E max gael: 60.8 cm/sec TR max gael: 229.2 cm/sec MV A max gael: 45.7 cm/sec TR max P.0 mmHg MV E/A: 1.3 PA V2 max: 139.4 cm/sec Med Peak E' Gael: 7.6 cm/sec PA V2 mean: 93.0 cm/sec E/E' med: 8.0 PA mean P.9 mmHg Lat Peak E' Gael: 11.7 cm/sec PA pr(Accel): 19.1 mmHg E/E' lat: 5.2 E/e' average: 6.6 MV dec time: 0.22 sec Reading Physician:03:32 PM
== END ==
PROVIDERS: PCP Internal Medicine; Referring Provider Internal Medicine Cardiovascular Disease; Visit Provider Internal Medicine Cardiovascular Disease
DX: I08.1 Rheumatic disorders of both mitral and tricuspid valves (principal); R00.1 Bradycardia, unspecified
CPT/HCPCS: 93306

== ENCOUNTER → 2024-08-30 09:55 | Outpatient (CLI) | payer MEDICARE, OTHER, SELFPAY ==
[2024-08-30 10:31] LABS: Hematocrit 46.6 % (41-53); Hemoglobin 15.9 g/dL (13.5-17.5); Mean Corpuscular HGB Conc 34.1 % (30-36); Mean Corpuscular Hemoglobin 31.6 PG (26-34); Mean Corpuscular Volume 92.6 fL (80-100); Platelet Count 223 X10^3/uL (150-400)
[2024-08-30 10:51] LABS: Blood Urea Nitrogen 19 mg/dL (9-20); Calcium 9.3 mg/dL (8.4-10.2); Carbon Dioxide 17 mmol/L (22-32); Chloride 108 mmol/L (98-107); Cholesterol 128 mg/dL (140-199); Estimated Glomerular Filt Rate > 60 mL/min (>60); Glucose 125 mg/dL (70-99); HDL Cholesterol 40 mg/dL (40-60); HEMOLYSIS < 15 (0-50); Potassium 4.4 mmol/L (3.4-5.1); Sodium 135 mmol/L (137-145); Triglycerides 143 mg/dL (35-150)
== END ==
PROVIDERS: PCP Internal Medicine; Referring Provider Internal Medicine; Visit Provider Internal Medicine Cardiovascular Disease
DX: I25.10 Atherosclerotic heart disease of native coronary artery without angina pectoris (principal)
CPT/HCPCS: 36415; 80048; 80061; 85027

== ENCOUNTER → 2025-01-20 13:42 | Outpatient (CLI) | payer MEDICARE, OTHER, SELFPAY ==
[2025-01-20 16:24] LABS: Prostate Specific Antigen 3.07 ng/mL (0.10-4.00)
== END ==
PROVIDERS: PCP Internal Medicine; Referring Provider Internal Medicine; Visit Provider Urology
DX: R97.20 Elevated prostate specific antigen [PSA] (principal)
CPT/HCPCS: 36415; 84153